=== PATIENT | male | born 1955 | race Caucasian/White ===

== ENCOUNTER 2018-03-30 15:09 | Emergency (ER) | payer OTHER ==
--- OUTSIDE RECORDS SUMMARY | 2018-03-30 15:11 | XMS REPORT | Summary of Care ---
:1955 Author Organization [facility] Outpatient Imaging [place] Address [address], [place] [address]- Encounter HQ Encntr_alias(FIN) [id number] Date(s): 04/02/17 - 04/02/17 [facility] Outpatient Imaging [address], [address] [place] [address]- [phone] Discharge Disposition: Home or Self Care Attending Physician: Anette Ring MD Vital Signs No data available for this section Problem List Condition Effective Dates Status Health Status Informant Hypertension(Confirmed) Resolved Sprain of ligaments of cervical Active spine, initial encounter(Confirmed) Allergies, Adverse Reactions, Alerts Substance Reaction Severity Status NKDA Active Medications No data available for this section Results No data available for this section Immunizations No data available for this section Procedures Procedure Date Related Diagnosis Body Site Appendectomy Knee maneuver Social History Social History Type Response Smoking Status Never smoker; Exposure to Tobacco Smoke None; Cigarette Smoking Last 365 Days No; Reg Smoking Cessation Counseling No Assessment and Plan No data available for this section
--- OUTSIDE RECORDS SUMMARY | 2018-03-30 15:11 | XMS REPORT | Summary of Care ---
:1955 Author Organization [facility] Outpatient Imaging - [place] Address [address] [place], [place] [address]- Encounter HQ Encntr_alias(FIN) [id number] Date(s): 04/15/17 - 04/15/17 [facility] Outpatient [facility] [place] [address] [place] [phone] Discharge Disposition: Home or Self Care Attending [...]
--- OUTSIDE RECORDS SUMMARY | 2018-03-30 15:11 | XMS REPORT | Summary of Care ---
:1955 Author Organization [facility] Address [address] [place] [address]- Encounter HQ Romulo(ARTURO) [id number] Date(s): 12/20/15 - 12/20/15 [facility] [address] [place] [address] Professional Services provided by [facility] [place] [address]- Discharge Diagnosis: Sprain of ligaments of cervical spine, initial encounter Discharge Disposition: Home Attending Physician: Griselda Drummond MD Vital Signs Most recent to oldest [Reference Range]: 1 2 Height 175.26 cm (12/20/15 11:50 AM) Temperature Oral [96.4-99.1 DegF] 100.0 DegF 98.0 DegF *HI* (12/20/15 11:50 AM) (12/20/15 1:49 PM) Blood Pressure [90-140/60-90 mmHg] 146/81 mmHg 153/86 mmHg *HI* *HI* (12/20/15 1:49 PM) (12/20/15 11:50 AM) Respiratory Rate [14-20 BRMIN] 16 BRMIN 16 BRMIN (12/20/15 1:49 PM) (12/20/15 11:50 AM) Peripheral Pulse Rate [60-100 bpm] 64 bpm 60 bpm (12/20/15 1:49 PM) (12/20/15 11:50 AM) Weight 125 kg (12/20/15 11:50 AM) Body Mass Index 40.7 m2 (12/20/15 11:50 AM) Problem List Condition Effective Dates Status Health Status Informant Hypertension(Confirmed) Resolved Sprain of ligaments of cervical Active spine, initial encounter(Confirmed) Allergies, Adverse Reactions, Alerts Substance Reaction Severity Status NKDA Active Medications Flexeril 10 mg oral tablet 10 mg, PO, TID, PRN Muscle Spasm, X 10 day, # 30 tab, 0 Refill(s) Start Date: 12/20/15 Stop Date: 12/30/15 Status: OrderedMotrin 800 mg oral tablet 800 mg=1 tab, PO, Q8H, PRN Pain, Take with food, # 30 tab, 0 Refill(s) Start Date: 12/20/15 Status: Orderedtramadol 100 mg, 2 tab, Route: PO, Drug form: TAB, ONCE, Dosing Weight 125, kg, > 50 kg, Priority: STAT, Start date: 12/20/15 12:22:00, Stop date: 12/20/15 12:22:00 Notes: Not to exceed 400mg/day. (Same As: Ultram) Start Date: 12/20/15 Stop Date: 12/20/15 Status: CompletedTylenol with Codeine #3 oral tablet 1 - 2 tab, PO, Q6H, PRN Pain, X 4 day, # 32 tab, 0 Refill(s) Start Date: 12/20/15 Stop Date: 12/24/15 Status: Ordered Results No data available for this section [...]
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
--- OUTSIDE RECORDS SUMMARY | 2018-03-30 15:11 | XMS REPORT | Summary of Care ---
:1955 Author Organization [facility] Address [address] [place] [address]- Encounter HQ Rudyr_vic(FIN) [id number] Date(s): 03/23/18 - 03/23/18 [facility] [address] [place] [address] [phone] Discharge Disposition: Home or Self Care Attending Physician: Tommie Chung MD Referring Physician: Tommie Chung MD Vital Signs Most recent to oldest [Reference 1 2 3 Range]: Height 175.26 cm (03/23/18 8:03 AM) Blood Pressure [90-140/60-90 mmHg] 159/71 mmHg 157/62 mmHg 157/68 mmHg *HI* *HI* *HI* (03/23/18 4:45 PM) (03/23/18 4:00 PM) (03/23/18 3:00 PM) Respiratory Rate [14-20 BRMIN] 16 BRMIN 20 BRMIN 24 BRMIN (03/23/18 4:45 PM) (03/23/18 4:00 PM) *HI* (03/23/18 3:00 PM) Peripheral Pulse Rate [60-100 bpm] 50 bpm *LOW* (03/23/18 7:35 AM) Weight 128.182 kg (03/23/18 8:03 AM) Body Mass Index 41.73 m2 (03/23/18 8:03 AM) Problem List Condition Effective Dates Status Health Status Informant Diabetes(Confirmed) Resolved High cholesterol(Confirmed) Resolved Hypertension(Confirmed) Resolved Low testosterone(Confirmed) Resolved Sprain of ligaments of cervical Active spine, initial encounter(Confirmed) Allergies, Adverse Reactions, Alerts Substance Reaction Severity Status NKDA Active Medications amLODIPine 10 mg oral tablet 10 mg=1 tab, PO, Daily, # 30 tab, 0 Refill(s) Start Date: 03/22/18 Status: Orderedaspirin 81 mg tablet, enteric coated 81 mg=1 tab, PO, Daily, # 90 tab, 3 Refill(s) Start Date: 03/23/18 Status: Orderedclopidogrel 75 mg oral tablet 75 mg=1 tab, PO, Daily, # 30 tab, 4 Refill(s), Pharmacy: [facility] [email or web address] [facility] # [id number] Start Date: 03/23/18 Stop Date: 08/20/18 Status: OrderedCo Q-10 100 mg oral capsule 100 mg=1 cap, PO, Daily, 0 Refill(s) Start Date: 03/22/18 Status: OrderedCrestor 10 mg oral tablet 10 mg=1 tab, PO, Bedtime, # 30 tab, 0 Refill(s) Start Date: 03/22/18 Status: Ordereddiclofenac sodium 75 mg oral enteric coated, delayed-release tablet 75 mg=1 tab, PO, BID, # 180 tab, 0 Refill(s) Start Date: 03/22/18 Status: OrderedHome Medication See Instructions, Refill(s) 0 Start Date: 03/23/18 Status: OrderedHome Medication See Instructions, Refill(s) 0 Start Date: 03/23/18 Status: OrderedHome Medication See Instructions, Refill(s) 0 Start Date: 03/23/18 Status: Orderedlevothyroxine 75 mcg (0.075 mg) oral tablet 75 microgram=1 tab, PO, Daily, # 30 tab, 0 Refill(s) Start Date: 03/22/18 Status: Orderedlisinopril 40 mg oral tablet 40 mg=1 tab, PO, Daily, # 30 tab, 0 Refill(s) Start Date: 03/22/18 Status: OrderedmetFORMIN 500 mg, PO, QID, 0 Refill(s) Start Date: 03/22/18 Status: Orderedmultivitamin 1 tab, PO, Daily, 0 Refill(s) Start Date: 03/22/18 Status: OrderedNorco 5/325 oral tablet 1 tab, Route: PO, Drug Form: TAB, Dosing Weight 128.182, kg, Q4H, PRN Pain Score 1-3, Start date: 03/23/18 11:04:00 CDT, Duration: 30 day, Stop date: 04/22 11:03:00 CDT Notes: (Same as: [place] 325/5) Do not exceed 4gm/day of acetaminophen. Start Date: 03/23/18 Stop Date: 03/23/18 Status: Discontinuednormal saline 0.9% IV 1,000 mL 1,000 mL, Rate: 100 ml/hr, Infuse over: 10 hr, Route: IV, Dosing Weight 125 kg, Total Volume: 1,000,Start date: 03/23/18 8:03:00 CDT, Duration: 30 day, Stop date: 04/22/18 8:02:00 CDT, 2.5, m2 Start Date: 03/23/18 Stop Date: 03/23/18 Status: DiscontinuedNS 1,000 mL 1,000 mL, Rate: 75 ml/hr, Infuse over: 13.3 hr, Route: IV, Dosing Weight 128.182 kg, Total Volume: 1,000, Start date: 03/23/18 11:04:00 CDT, Duration: 30 day, Stop date: 04/22/18 11:03:00 CDT, 2.53, m2 Start Date: 03/23/18 Stop Date: 03/23/18 Status: Discontinuedomeprazole 20 mg oral delayed release capsule 20 mg=1 cap, PO, Daily, # 30 cap, 0 Refill(s) Start Date: 03/22/18 Stop Date: 03/23/18 Status: DiscontinuedPlavix 75 mg, 1 tab, Route: PO, Drug form: TAB, ONCE, Dosing Weight 128.182, kg, Start date: 03/23/18 17:00:00 CDT, Stop date: 03/23/18 17:00:00 CDT Notes: (Same As: Plavix) Start Date: 03/23/18 Stop Date: 03/23/18 Status: Completed Results No data available for this section Immunizations No data available for this section Procedures Procedure Date Related Diagnosis Body Site Status Appendectomy Completed Knee maneuver Completed Social History Social History Type Response Smoking Status Former smoker; Type: Cigarettes; Previous treatment: None; Ready to change: No; Concerns about tobacco use in household: No; Exposure to Tobacco Smoke None; Cigarette Smoking Last 365 Days No; Reg Smoking Cessation Counseling No entered on: 03/23/18 Assessment and Plan No data available for this section
--- NOTE | 2018-03-30 16:06 | RAD REPORT ---
EXAM DESCRIPTION: Juany Single View03/30/2018 3:56 pm CLINICAL HISTORY: Chest pain COMPARISON: November 2017 FINDINGS: The lungs appear clear of acute infiltrate. The heart is normal size IMPRESSION: No acute abnormalities displayed
[2018-03-30 16:11] LABS: Absolute Lymphocytes (CBC) 1.7 K/uL (0.7-4.9); Absolute Monocytes 0.9 K/uL (0.1-1.3); Absolute Neutrophil 10.6 K/uL (1.8-8.0); Basophils % 0.5 % (0-1.3); Eosinophils % 1.8 % (0-4.4); Lymphocytes % 12.7 % (15.3-44.8); MCH 32.1 pg (27.0-35.0); MCV 93.7 fL (80-100); MPV 9.8 fL (7.6-11.3); Monocytes % 6.7 % (3.3-12.3); Protime INR 0.98; RBC Red Blood Cell Count 4.91 M/uL (4.33-5.43)
[2018-03-30 16:13] LABS: Magnesium 2.1 mg/dL (1.8-2.5)
[2018-03-30 16:19] LABS: CKMB Creatine Kinase MB 2.2 ng/ml (0.3-4.0)
--- NOTE | 2018-03-30 16:51 | EDPHYS ---
Physician Documentation [facility] Name: Jhony Fajardo Age: 62 yrs Sex: Male : 1955 Arrival Date: 03/30/2018 Time: 15:11 Bed 2 Private MD: Dino Blevins V ED Physician Silvano Hameed HPI: 03/30 15:37 This 62 yrs old Male presents to ER via Ambulatory with complaints of Chest rn Tightness, Breathing Difficulty. 15:37 The patient or guardian reports chest pain that is located primarily in the substernal rn area. Onset: last night. The pain does not radiate. Associated signs and symptoms: Pertinent positives: dizziness, shortness of breath, Pertinent negatives: abdominal pain, cough, diaphoresis, headache, lower extremity pain, lower extremity swelling, nausea, near syncope, palpitations, recent travel, syncope, vomiting. Duration: The patient or guardian reports multiple episodes, that are intermittent. Modifying factors: The symptoms are alleviated by nothing. the symptoms are aggravated by nothing. Severity of pain: At its worst the pain was mild in the emergency department the pain has improved. The patient has not experienced similar symptoms in the past. Just had stent placed 1 week ago at [facility], returns with central substernal chest pain, non-radiating, feels "spacey", and lightheaded, assoc with sob last night, currently no sob. . Historical: - Allergies: 15:18 No Known Allergies; aj1 - Home Meds: 15:18 Plavix Oral [Active]; Metformin Oral [Active]; Lisinopril Oral [Active]; Synthroid Oral aj1 [Active]; diclofenac oral oral [Active]; amlodipine oral [Active]; Crestor oral oral [Active]; - PMHx: 15:18 Diabetes - NIDDM; Hypertension; Hypothyroidism; Hyperlipidemia; aj1 - PSHx: 15:18 Appendectomy; Knee surgery; aj1 - Immunization history:: Flu vaccine is up to date. - Social history:: Smoking status: Patient/guardian denies using tobacco. - Ebola Screening: : Patient denies travel to an Ebola-affected area in the 21 days before illness onset. - Family history:: not pertinent. - Hospitalizations: : No recent hospitalization is reported. ROS: 15:37 Constitutional: Negative for fever, chills, and weight loss, Eyes: Negative for injury, rn pain, redness, and discharge, Neck: Negative for injury, pain, and swelling, Cardiovascular: Negative for palpitations, and edema, Respiratory: Negative for shortness of breath, cough, wheezing, and pleuritic chest pain, Abdomen/GI: Negative for abdominal pain, nausea, vomiting, diarrhea, and constipation, Back: Negative for injury and pain, MS/Extremity: Negative for injury and deformity, Skin: Negative for injury, rash, and discoloration, Neuro: Negative for headache, weakness, numbness, tingling, and seizure. Exam: 15:37 Constitutional: This is a well developed, well nourished patient who is awake, alert, rn and in no acute distress. Head/Face: Normocephalic, atraumatic. Eyes: Pupils equal round and reactive to light, extra-ocular motions intact. Lids and lashes normal. Conjunctiva and sclera are non-icteric and not injected. Cornea within normal limits. Periorbital areas with no swelling, redness, or edema. Neck: Trachea midline, no thyromegaly or masses palpated, and no cervical lymphadenopathy. Supple, full range of motion without nuchal rigidity, or vertebral point tenderness. No Meningismus. Cardiovascular: bradycardic, regular, no murmur Respiratory: Lungs have equal breath sounds bilaterally, clear to auscultation and percussion. No rales, rhonchi or wheezes noted. No increased work of breathing, no retractions or nasal flaring. Abdomen/GI: Soft, non-tender, with normal bowel sounds. No distension or tympany. No guarding or rebound. No evidence of tenderness throughout. MS/ Extremity: Pulses equal, no cyanosis. Neurovascular intact. Full, normal range of motion. Equal circumference. Neuro: Awake and alert, GCS 15, oriented to person, place, time, and situation. Cranial nerves II-XII grossly intact. Motor strength 5/5 in all extremities. Sensory grossly intact. Vital Signs: 15:18 BP 139 / 63; Pulse 57; Resp 20; Temp 98.0; Pulse Ox 98% on R/A; Weight 127.01 kg; aj1 Height 5 ft. 9 in. (175.26 cm); Pain 3/10; 16:08 BP 150 / 63; Pulse 59; Resp 15; Pulse Ox 96% on R/A; tw2 17:03 BP 146 / 70; Pulse 62; Resp 18; Pulse Ox 96% on R/A; tw2 17:54 BP 146 / 79; Pulse 65; Resp 18; Pulse Ox 96% on R/A; tw2 15:18 Body Mass Index 41.35 (127.01 kg, 175.26 cm) aj1 MDM: 15:26 Patient medically screened. rn 16:29 ED course: pain free, asymptomatic, normal trop and ecg with pvc, otherwise no rn ischemia.. 16:49 Differential diagnosis: acute myocardial infarction, acute pericarditis, anxiety, rn coronary artery disease chest wall pain, costochondritis, gastroesophageal reflux disease (GERD), pleurisy, pneumothorax. Data reviewed: vital signs, nurses notes, lab test result(s), EKG, radiologic studies, plain films, and as a result, I will admit patient. Counseling: I had a detailed discussion with the patient and/or guardian regarding: the historical points, exam findings, and any diagnostic results supporting the discharge/admit diagnosis, lab results, radiology results, the need to transfer to another facility, Spoke with his overlocker at [facility] in [place], accepts transfer for chest pain observation. . 03/30 15:33 Order name: Basic Metabolic Panel; Complete Time: 16:24 rn 03/30 15:33 Order name: BNP; Complete Time: 16:24 rn 03/30 15:33 Order name: CBC with Diff; Complete Time: 16:24 03/30 15:33 Order name: Ckmb; Complete Time: 16:24 03/30 15:33 Order name: CPK; Complete Time: 16:24 03/30 15:33 Order name: Magnesium; Complete Time: 16:24 03/30 15:33 Order name: PT-INR 03/30 15:33 Order name: Ptt, Activated 03/30 15:33 Order name: Troponin (emerg Dept Use Only); Complete Time: 16:24 rn 03/30 15:33 Order name: XRAY Chest (1 view); Complete Time: 16:12 03/30 15:33 Order name: EKG; Complete Time: 15:33 rn 03/30 15:33 Order name: Cardiac monitoring; Complete Time: 15:55 rn 03/30 15:33 Order name: EKG - Nurse/Tech; Complete Time: 15:55 rn 03/30 15:33 Order name: IV Saline Lock; Complete Time: 15:55 rn 03/30 15:33 Order name: Labs collected and sent; Complete Time: 15:56 rn 03/30 15:33 Order name: O2 Per Protocol; Complete Time: 15:56 rn 03/30 15:33 Order name: O2 Sat Monitoring; Complete Time: 16:23 rn Administered Medications: No medications were administered Disposition: 03/30/18 16:50 Transfer ordered to Other Acute Care Facility. Diagnosis is Chest pain, unspecified. - Reason for transfer: Higher level of care. - Accepting physician is Dr. Chung. - Condition is Stable. - Problem is new. - Symptoms have improved. Signatures: Dispatcher [employer] EDMS Cindy Hernandez, RN RN aj1 Silvano Hameed MD MD rn Wise, Tara, RN RN tw2 Corrections: (The following items were deleted from the chart) 18:10 16:50 03/30/2018 16:50 Transfer ordered to Other Acute Care Facility. Diagnosis is tw2 Chest pain, unspecified. Reason for transfer: Higher level of care. Accepting physician is Dr. Chung. Condition is Stable. Problem is new. Symptoms have improved. rn
--- NOTE | 2018-03-30 16:51 | ER ---
Nurse's Notes [facility] Name: Jhony Fajardo Age: 62 yrs Sex: Male : 1955 Arrival Date: 03/30/2018 Time: 15:11 Bed 2 Private MD: Dino Blevins V Diagnosis: Chest pain, unspecified Presentation: 03/30 15:12 Presenting complaint: Patient states: Substernal chest pain that is described as aj1 pressure, dizziness, and shortness of breath that started last night. Had a cardiac cath done with stent placement on . Transition of care: patient was not received from another setting of care. Onset of symptoms was March 30, 2018 at 01:00. Risk Assessment: Do you want to hurt yourself or someone else? Patient reports no desire to harm self or others. Initial Sepsis Screen: Does the patient meet any 2 criteria? No. Patient's initial sepsis screen is negative. Does the patient have a suspected source of infection? No. Patient's initial sepsis screen is negative. Care prior to arrival: None. 15:12 Method Of Arrival: Ambulatory aj1 15:12 Acuity: DELFINO 2 aj1 Triage Assessment: 15:18 General: Appears in no apparent distress. uncomfortable, Behavior is calm, cooperative, aj1 appropriate for age. Pain: Complains of pain in mid-sternal area Pain does not radiate. Pain currently is 3 out of 10 on a pain scale. Quality of pain is described as heavy, pressure, Pain began 0100 this morning Is intermittent, Alleviated by nothing. Aggravated by nothing. Cardiovascular: Patient's skin is warm and dry. Historical: - Allergies: 15:18 No Known Allergies; aj1 - Home Meds: 15:18 Plavix Oral [Active]; Metformin Oral [Active]; Lisinopril Oral [Active]; Synthroid Oral aj1 [Active]; diclofenac oral oral [Active]; amlodipine oral [Active]; Crestor oral oral [Active]; - PMHx: 15:18 Diabetes - NIDDM; Hypertension; Hypothyroidism; Hyperlipidemia; aj1 - PSHx: 15:18 Appendectomy; Knee surgery; aj1 - Immunization history:: Flu vaccine is up to date. - Social history:: Smoking status: Patient/guardian denies using tobacco. - Ebola Screening: : Patient denies travel to an Ebola-affected area in the 21 days before illness onset. - Family history:: not pertinent. - Hospitalizations: : No recent hospitalization is reported. Screenin:30 Abuse screen: Denies threats or abuse. Nutritional screening: No deficits noted. tw2 Tuberculosis screening: No symptoms or risk factors identified. Fall Risk None identified. Assessment: 15:23 Reassessment: provider Dr. Hameed at bedside at this time. tw2 15:31 General: Appears in no apparent distress. obese, well groomed, Behavior is calm, tw2 cooperative, appropriate for age. Pain: Complains of pain in chest and mid-sternal area. Neuro: Level of Consciousness is awake, alert, obeys commands, Oriented to person, place, time, situation. Cardiovascular: Reports chest pain, shortness of breath, Heart tones S1 S2 Capillary refill < 3 seconds Patient's skin is warm and dry. Respiratory: Airway is patent Respiratory effort is even, unlabored, Respiratory pattern is regular, symmetrical, Breath sounds are clear bilaterally. GI: No signs and/or symptoms were reported involving the gastrointestinal system. Abdomen is round non-distended, Bowel sounds present X 4 quads. : No signs and/or symptoms were reported regarding the genitourinary system. EENT: No signs and/or symptoms were reported regarding the EENT system. Derm: Skin is intact, is healthy with good turgor, Skin is dry, Skin temperature is warm. 16:11 Reassessment: Patient appears in no apparent distress at this time. No changes from tw2 previously documented assessment. Patient and/or family updated on plan of care and expected duration. Pain level reassessed. Patient is alert, oriented x 3, equal unlabored respirations, skin warm/dry/pink. 17:04 Reassessment: Patient appears in no apparent distress at this time. No changes from tw2 previously documented assessment. Patient and/or family updated on plan of care and expected duration. Pain level reassessed. Patient is alert, oriented x 3, equal unlabored respirations, skin warm/dry/pink. Vital Signs: 15:18 BP 139 / 63; Pulse 57; Resp 20; Temp 98.0; Pulse Ox 98% on R/A; Weight 127.01 kg; aj1 Height 5 ft. 9 in. (175.26 cm); Pain 3/10; 16:08 BP 150 / 63; Pulse 59; Resp 15; Pulse Ox 96% on R/A; tw2 17:03 BP 146 / 70; Pulse 62; Resp 18; Pulse Ox 96% on R/A; tw2 17:54 BP 146 / 79; Pulse 65; Resp 18; Pulse Ox 96% on R/A; tw2 15:18 Body Mass Index 41.35 (127.01 kg, 175.26 cm) aj1 ED Course: 15:11 Patient arrived in ED. mr 15:11 Dino Blevins MD is Private Physician. mr 15:15 Triage completed. aj1 15:18 Arm band placed on. aj1 15:25 Erica Costello RN is Primary Nurse. jl7 15:26 Silvano Hameed MD is Attending Physician. rn 15:30 Placed in gown. Bed in low position. Adult w/ patient. school bus monitor on. Pulse ox on. tw2 NIBP on. Pillow given. 15:30 No provider procedures requiring assistance completed. Patient maintains SpO2 tw2 saturation greater than 95% on room air. 15:38 EKG done, by technical support intern. reviewed by Silvano Hameed MD. 3 15:40 Initial lab(s) drawn, by la, sent to lab. Inserted saline lock: 22 gauge in left jp3 forearm, using aseptic technique. Blood collected. 15:49 X-ray completed. Portable x-ray completed in exam room. Patient tolerated procedure bb2 well. 15:49 XRAY Chest (1 view) In Process Unspecified. EDMS 17:55 Patient transferred, IV remains in place. tw2 Administered Medications: No medications were administered Outcome: 16:50 ER care complete, transfer ordered by . rn 17:55 Transferred to [facility], Note: [place] tw2 17:55 Condition: stable 17:55 Instructed on the need for transfer. 18:10 Patient left the ED. tw2 Signatures: Dispatcher [employer] EDMS Cindy Hernandez, RN RN aj1 Sarah Shah mr Silvano Hameed MD MD rn Wise, Tara, RN RN tw2 Erica Costello RN RN jl7 Vira Stoddard bb2 Elizabeth Pereira 3 Willis Bartholomew 3
--- NOTE | 2018-03-31 06:18 | EKG ---
Test Date: 2018-03-30 Test Time: 15:30:34 Workforce Specialist: DEE DEE MEASUREMENT RESULTS: Intervals: Rate: 59 DC: 206 QRSD: 100 QT: 410 QTc: 405 [place]: P: 28 DC: 206 QRS: 6 T: 68 INTERPRETIVE STATEMENTS: Sinus bradycardia with premature atrial complexes with aberrant conduction Otherwise normal ECG Compared to ECG 12/11/2017 12:04:21 Aberrant conduction of supraventricular beat(s) now present Electronically Signed On 03-31-18 06:17:13 CDT by Quincy Shirley
== END 2018-03-30 18:10 ==
LOC: ER 15:09
DX: R07.9 Chest pain, unspecified (principal); E11.9 Type 2 diabetes mellitus without complications; I10 Essential (primary) hypertension; E03.9 Hypothyroidism, unspecified; E78.5 Hyperlipidemia, unspecified
CPT/HCPCS: 36415; 71045; 80048; 82550; 82553; 83735; 83880; 84484; 85025; 85610; 85730; 93005; 99285

== ENCOUNTER 2018-08-20 15:10 | Emergency (ER) | payer OTHER ==
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
[2018-08-20] MEDS ORDERED: CHLORPROMAZINE 25 MG TAB PO ONE ×2 (16:00→18:00)
--- NOTE | 2018-08-20 17:11 | RAD REPORT ---
EXAM DESCRIPTION: RAD - Chest Single View - 08/20/2018 4:09 pm CLINICAL HISTORY: Dyspnea COMPARISON: March 30 TECHNIQUE: AP portable chest image was obtained 1555 hours . FINDINGS: Lungs are clear. Heart and vasculature are normal. No measurable pleural effusion and no p neumothorax. No acute bony abnormality seen. No acute aortic findings suspected. IMPRESSION: No acute cardiopulmonary process. No significant change from comparison.
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
--- NOTE | 2018-08-20 17:22 | EDPHYS ---
Physician Documentation [facility] Name: Jhony Fajardo Age: 62 yrs Sex: Male : 1955 Arrival Date: 08/20/2018 Time: 15:11 Bed 30 Private MD: ED Physician Malick Figueroa HPI: 08/20 15:48 This 62 yrs old Male presents to ER via Wheelchair with complaints of jr8 Shortness Of Breath, hiccups. 15:48 Patient stated that he has had hiccups since his knee surgery last week. Stated that he jr8 was admitted for it and was on Compazine with some relief. Discharged home this past and then started to have them again. Stated that the hiccups come so often that he has shortness of breath from them. Ortho reevaluated his knee and r/o dvt as well . Historical: - Allergies: 15:12 No Known Allergies; la1 - Home Meds: 15:28 amlodipine oral [Active]; Crestor Oral [Active]; diclofenac Oral [Active]; lisinopril mg2 Oral [Active]; Metformin Oral [Active]; Plavix Oral [Active]; Synthroid Oral [Active]; - PMHx: 15:12 Diabetes - NIDDM; Hyperlipidemia; Hypertension; Hypothyroidism; la1 - PSHx: 15:28 total right knee replacement; mg2 - Immunization history:: Adult Immunizations up to date. - Social history:: Smoking status: Patient/guardian denies using tobacco. - Ebola Screening: : No symptoms or risks identified at this time. ROS: 15:48 Eyes: Negative for injury, pain, redness, and discharge, ENT: Negative for injury, jr8 pain, and discharge, Neck: Negative for injury, pain, and swelling, Cardiovascular: Negative for chest pain, palpitations, and edema, Abdomen/GI: Negative for abdominal pain, nausea, vomiting, diarrhea, and constipation, Back: Negative for injury and pain, MS/Extremity: Negative for injury and deformity, Skin: Negative for injury, rash, and discoloration, Neuro: Negative for headache, weakness, numbness, tingling, and seizure. 15:48 Respiratory: Positive for shortness of breath, Negative for cough, dyspnea on exertion, hemoptysis, pleurisy, sputum production, wheezing. Exam: 15:48 Eyes: Pupils equal round and reactive to light, extra-ocular motions intact. Lids and jr8 lashes normal. Conjunctiva and sclera are non-icteric and not injected. Cornea within normal limits. Periorbital areas with no swelling, redness, or edema. ENT: Nares patent. No nasal discharge, no septal abnormalities noted. Tympanic membranes are normal and external auditory canals are clear. Oropharynx with no redness, swelling, or masses, exudates, or evidence of obstruction, uvula midline. Mucous membranes moist. Neck: Trachea midline, no thyromegaly or masses palpated, and no cervical lymphadenopathy. Supple, full range of motion without nuchal rigidity, or vertebral point tenderness. No Meningismus. Cardiovascular: Regular rate and rhythm with a normal S1 and S2. No gallops, murmurs, or rubs. Normal PMI, no JVD. No pulse deficits. Respiratory: Lungs have equal breath sounds bilaterally, clear to auscultation and percussion. No rales, rhonchi or wheezes noted. No increased work of breathing, no retractions or nasal flaring. Abdomen/GI: Soft, non-tender, with normal bowel sounds. No distension or tympany. No guarding or rebound. No evidence of tenderness throughout. Back: No spinal tenderness. No costovertebral tenderness. Full range of motion. Skin: Warm, dry with normal turgor. Normal color with no rashes, no lesions, and no evidence of cellulitis. Neuro: Awake and alert, GCS 15, oriented to person, place, time, and situation. Cranial nerves II-XII grossly intact. Motor strength 5/5 in all extremities. Sensory grossly intact. Cerebellar exam normal. Normal gait. 15:48 Musculoskeletal/extremity: Pulses: noted to be 2+ in the right radial artery, right dorsalis pedis artery, left radial artery and left dorsalis pedis artery, DVT Exam: no pain, no tenderness, negative Homans' sign noted on exam, no appreciated bluish discoloration, no erythema, no increased warmth, Right leg with mild swelling and bruising post surgery noted. Surgical scar covered. Local erythema noted to lateral knee outside of the scar itself with warmth and slightly tender. Vital Signs: 15:12 BP 111 / 49; Pulse 78; Resp 18; Temp 97.2; Pulse Ox 99% on R/A; Weight 127.01 kg; la1 Height 5 ft. 9 in. (175.26 cm); 15:26 BP 119 / 68; Pulse 73; Resp 18; Pulse Ox 98% on R/A; Pain 4/10; mg2 16:28 BP 122 / 58; Pulse 73; Resp 20; Pulse Ox 98% on 3 lpm NC; Pain 2/10; mg2 17:40 BP 118 / 70; Pulse 70; Resp 18; Pulse Ox 98% on R/A; Pain 0/10; mg2 15:12 Body Mass Index 41.35 (127.01 kg, 175.26 cm) la1 MDM: 15:14 Patient medically screened. jr8 17:20 Data reviewed: vital signs, nurses notes, radiologic studies, plain films. Data jr8 interpreted: Pulse oximetry: on room air is 98 %. Interpretation: normal. Counseling: I had a detailed discussion with the patient and/or guardian regarding: the historical points, exam findings, and any diagnostic results supporting the discharge/admit diagnosis, the need for outpatient follow up, a family practitioner, to return to the emergency department if symptoms worsen or persist or if there are any questions or concerns that arise at home. Response to treatment: the patient's symptoms have markedly improved after treatment. 08/20 15:30 Order name: XRAY Chest (1 view); Complete Time: 17:16 jr8 08/20 15:30 Order name: Oxygen; Complete Time: 15:38 jr8 Administered Medications: 15:47 Drug: chlorproMAZINE 50 mg Route: PO; mg2 17:48 Follow up: Response: No adverse reaction; Marked relief of symptoms mg2 17:47 Drug: Bactrim (160 mg-800 mg (DS) 1 tablet Route: PO; mg2 17:48 Follow up: Response: No adverse reaction; Medication administered at discharge. mg2 17:48 Not Given (patient will take at home \T\ midnight. ): chlorproMAZINE 50 mg PO once mg2 Disposition: 18:04 Co-signature as Attending Physician, Malick Figueroa MD I agree with the assessment and kdr plan of care. Disposition: 08/20/18 17:22 Discharged to Home. Impression: Local infection of the skin and subcutaneous tissue, unspecified, Hiccough. - Condition is Stable. - Discharge Instructions: Cellulitis, Adult, Hiccups. - Prescriptions for Chlorpromazine 50 mg Oral Tablet - take 1 tablet by ORAL route every 8 hours for 3 days; 9 tablet. Bactrim DS 800- 160 mg Oral Tablet - take 1 tablet by ORAL route every 12 hours for 10 days; 20 tablet. - Medication Reconciliation Form, Thank You Letter, Antibiotic Education, Prescription Opioid Use form. - Follow up: Private Physician; When: 2 - 3 days; Reason: Recheck today's complaints, Continuance of care, Re-evaluation by your physician. - Problem is new. - Symptoms have improved. Signatures: Dispatcher [employer] EDMS Malick Figueroa MD MD kdr Roszak, Josh, PA PA jr8 Elias Jonas RN RN la1 Levi Knowles RN RN mg2 Corrections: (The following items were deleted from the chart) 17:21 15:48 Musculoskeletal/extremity: Pulses: noted to be 2+ in the right radial artery, jr8 right dorsalis pedis artery, left radial artery and left dorsalis pedis artery, DVT Exam: no pain, no tenderness, negative Homans' sign noted on exam, no appreciated bluish discoloration, no erythema, no increased warmth, Right leg with mild swelling and bruising post surgery noted. Surgical scar covered. No erythema/cellulitis present. jr8 17:50 17:22 08/20/2018 17:22 Discharged to Home. Impression: Local infection of the skin and mg2 subcutaneous tissue, unspecified; Hiccough. Condition is Stable. Forms are Medication Reconciliation Form, Thank You Letter, Antibiotic Education, Prescription Opioid Use. Follow up: Private Physician; When: 2 - 3 days; Reason: Recheck today's complaints, Continuance of care, Re-evaluation by your physician. Problem is new. Symptoms have improved. jr8
[2018-08-20] MEDS ORDERED: SMZ./TMP. 800/160 MG TABLET ONE (17:33)
== END 2018-08-20 17:50 | disposition home or self-care (01) ==
LOC: ER 15:10
DX: L08.9 Local infection of the skin and subcutaneous tissue, unspecified (principal); I10 Essential (primary) hypertension; E11.9 Type 2 diabetes mellitus without complications; E03.9 Hypothyroidism, unspecified; Z79.01 Long term (current) use of anticoagulants
CPT/HCPCS: 71045; 99284

== ENCOUNTER 2018-09-11 11:39 | Observation (INO) | payer OTHER ==
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
[2018-09-11] MEDS ORDERED: ALBUTEROL 2.5 MG/3 ML NEB SOL IH PRN (12:23)
[2018-09-11] MEDS ORDERED: ACETAMINOPHEN 325 MG TABLET PO PRN (13:00)
[2018-09-11] MEDS ORDERED: POLYETHYL GLY 3350 17 GM/DOSE PO PRN (13:00)
[2018-09-11] MEDS ORDERED: ONDANSETRON 4 MG/2 ML VIAL IV PRN (13:00)
[2018-09-11] MEDS ORDERED: ONDANSETRON 4 MG (ODT) TAB PO PRN (13:00)
[2018-09-11] MEDS ORDERED: LOPERAMIDE HCL 2 MG CAPSULE PO PRN (13:00)
[2018-09-11] MEDS ORDERED: DIPHENHYDRAMINE 25 MG TAB/CAP PO PRN (13:00)
[2018-09-11] MEDS ORDERED: NACHLORIDE 0.45% 1,000 ML IV SCH (13:00)
[2018-09-11 13:15] LABS: Absolute Lymphocytes (CBC) 1.5 K/uL (0.7-4.9); Absolute Neutrophil 13.1 K/uL (1.8-8.0); Eosinophils % 0.7 % (0-4.4); Hematocrit 39.8 % (39.6-49.0); Lymphocytes % 9.3 % (15.3-44.8); MCH 32.1 pg (27.0-35.0); MCV 93.3 fL (80-100); MPV 8.8 fL (7.6-11.3); Monocytes % 6.5 % (3.3-12.3); RBC Red Blood Cell Count 4.26 M/uL (4.33-5.43)
[2018-09-11] MEDS: LEVALBUTEROL 1.25 MG/3 ML NEB IH SCH ×2 (13:19→20:01)
[2018-09-11] MEDS: IPRATROPIUM BROM 0.5MG/2.5ML IH SCH ×2 (13:19→20:01)
[2018-09-11 13:26] LABS: Protime INR 1.08
[2018-09-11] MEDS ORDERED: LORazepam 2 MG/ML VIAL IV ONE (13:36)
[2018-09-11 13:58] LABS: Albumin 3.6 g/dL (3.4-5.0); Bilirubin Direct 0.1 mg/dL (0-0.2); Bilirubin Total 0.3 mg/dL (0.2-1.0); Magnesium 2.2 mg/dL (1.8-2.4); Phosphorus 3.1 mg/dL (2.5-4.9); Protein, Total 7.5 g/dL (6.4-8.2); Thyroid Stimulating Hormone 1.6 uIU/mL (0.360-3.740)
[2018-09-11 14:28] LABS: Urine Appearance CLEAR; Urine Bilirubin NEGATIVE (NEG); Urine Blood NEGATIVE (NEG); Urine Color YELLOW; Urine Glucose NEGATIVE (NEG); Urine Protein NEGATIVE (NEG); Urine Specific Gravity 1.015 (1.005-1.030); Urine Urobilinogen 0.2 mg/dL (0.2-1.0)
[2018-09-11 14:30] LABS: Urine Microscopic Reflex NO UMIC
--- NOTE | 2018-09-11 15:03 | RAD REPORT ---
EXAM DESCRIPTION: RAD - Chest Pa And Lat (2 Views) - 09/11/2018 2:46 pm CLINICAL HISTORY: Dyspnea COMPARISON: August 2018 TECHNIQUE: PA and lateral views of the chest were obtained. FINDINGS: The lungs are clear. Heart size is normal and central vasculature is within normal limit s. No pleural effusion or pneumothorax seen. No acute bony finding noted. No aortic abnormality. IMPRESSION: No acute cardiopulmonary process. No significant change from comparison.
--- NOTE | 2018-09-11 16:00 | RAD REPORT ---
EXAM DESCRIPTION: MRI - Brain Wo Cont - 09/11/2018 2:34 pm CLINICAL HISTORY: Transient alteration of awareness COMPARISON: None. TECHNIQUE: Sagittal T1-weighted images were obtained along with axial PD, heavily T2-weighted and T2 -FLAIR images. Axial DWI and ADC mapping sequences were also obtained along with coronal heavily T2-w eighted images. FINDINGS: No intracranial hemorrhage, mass or acute infarction. There is no edema or shift of midlin e structures. No extra-axial fluid collections. [place]-matter/white matter junction is preserved. Signa l voids are seen as a normal finding in the major intracranial vessels. No measurable atrophy or risk compliance analyst rafael ischemic change. Globes and orbital contents are unremarkable. No sella or supra sella abnormality. Mastoid air cells and paranasal sinuses are clear. IMPRESSION: Negative noncontrast MRI of the brain for acute or significant finding.
--- NOTE | 2018-09-11 16:03 | ECHO ---
HEIGHT: 5 ft 9 in WEIGHT: 267 lb 0 oz DATE OF STUDY: 09/11/[address]: Dino Blevins MD 2-DIMENSIONAL: YES M.MODE: YES DOPPLER: YES COLOR FLOW: YES TDS: NO PORTABLE: NO DEFINITY: NO BUBBLE STUDY: NO DIAGNOSIS: DYSPNEA CARDIAC HISTORY: CATHERIZATION: YES SURGERY: NO PROSTHETIC VALVE: NO PACEMAKER: NO MEASUREMENTS (cm) DIASTOLIC (NORMALS) SYSTOLIC (NORMALS) IVSd 1.2 (0.6-1.2) LA Diam 4.4 (1.9-4.0) LVEF 79% LVIDd 5.5 (3.5-5.7) LVIDs 2.9 (2.0-3.5) %FS 48% LVPWd 1.3 (0.6-1.2) Ao Diam 2.7 (2.0-3.7) 2 DIMENSIONAL ASSESSMENT: RIGHT ATRIUM: NORMAL LEFT ATRIUM: DILATED RIGHT VENTRICLE: NORMAL LEFT VENTRICLE: NORMAL TRICUSPID VALVE: NORMAL MITRAL VALVE: NORMAL PULMONIC VALVE: NORMAL AORTIC VALVE: NORMAL PERICARDIAL EFFUSION: NONE AORTIC ROOT: NORMAL LEFT VENTRICULAR WALL MOTION: NORMAL. DOPPLER/COLOR FLOW: MILD TRICUSPID REGURGITATION. NORMAL RIGHT VENTRICULAR SYSTOLIC PRESSURE. COMMENTS: NORMAL LEFT VENTRICULAR EJECTION FRACTION. DJILATED LEFT ATRIUM. MILD TRICUSPID REGURGITATION. TECHNOLOGIST: MELI MACIAS
[2018-09-11] MEDS: CODEINE 30MG/APAP 300MG TAB PO PRN (18:51)
--- NOTE | 2018-09-11 19:17 | EKG ---
Test Date: 2018-09-11 Test Time: 13:27:46 Interactive Media Project Manager: DEE DEE MEASUREMENT RESULTS: Intervals: Rate: 65 PA: 200 QRSD: 104 QT: 378 QTc: [address] [place]: P: 48 PA: 200 QRS: 26 T: 56 INTERPRETIVE STATEMENTS: Sinus rhythm with premature atrial complexes with aberrant conduction Otherwise normal ECG Compared to ECG 03/30/2018 15:30:34 Sinus bradycardia no longer present Electronically Signed On 09-11-18 19:17:25 PET CARE ASSOCIATE by Quincy Shirley
[2018-09-11] MEDS ORDERED: ROSUVASTATIN 10 MG TAB PO SCH (21:00)
[2018-09-12] MEDS: CODEINE 30MG/APAP 300MG TAB PO PRN (00:27)
[2018-09-12] MEDS: IPRATROPIUM BROM 0.5MG/2.5ML IH SCH ×3 (02:00→13:34)
[2018-09-12] MEDS: LEVALBUTEROL 1.25 MG/3 ML NEB IH SCH ×3 (02:00→13:34)
[2018-09-12 04:17] LABS: Absolute Lymphocytes (CBC) 1.6 K/uL (0.7-4.9); Absolute Neutrophil 9.4 K/uL (1.8-8.0); Basophils % 0.7 % (0-1.3); Eosinophils % 2.4 % (0-4.4); Hematocrit 37.1 % (39.6-49.0); Lymphocytes % 12.9 % (15.3-44.8); MCH 31.9 pg (27.0-35.0); MCV 93.3 fL (80-100); Monocytes % 8.1 % (3.3-12.3); RBC Red Blood Cell Count 3.97 M/uL (4.33-5.43)
[2018-09-12] MEDS ORDERED: LEVOTHYROXINE SOD 0.075 MG TAB PO SCH (06:00)
[2018-09-12] MEDS ORDERED: PANTOPRAZOLE 40MG TABLET PO SCH (06:30)
[2018-09-12] MEDS ORDERED: INFLUENZA VACCINE (for 3y+) 0.5 ML DOSE IMVAC ONE (08:00)
[2018-09-12] MEDS ORDERED: SODIUM CHLORIDE 0.9% 10ML INJ IV ONE (08:00)
[2018-09-12] MEDS ORDERED: COSYNTROPIN 0.25 MG VIAL IV ONE (08:00)
[2018-09-12] MEDS ORDERED: LISINOPRIL 20 MG TAB PO SCH (09:00)
[2018-09-12] MEDS ORDERED: HOME MED 1 EA UNK (Omeprazole [Omeprazole] 20 MG) PO SCH (09:00)
[2018-09-12] MEDS ORDERED: ASPIRIN 81 MG CHEWABLE TABLET PO SCH (09:00)
[2018-09-12] MEDS ORDERED: ENOXAPARIN 40 MG/0.4 ML SQ SCH (09:00)
[2018-09-12] MEDS ORDERED: MULTIVITAMIN TAB PO SCH (09:00)
[2018-09-12] MEDS ORDERED: DULOXETINE 20 MG CAP PO SCH (09:00)
[2018-09-12] MEDS ORDERED: TAMSULOSIN 0.4 MG SR CAP PO SCH (17:30)
--- NOTE | 2018-09-12 21:01 | P.DS ---
Admission Date: 09/11/18 Discharge Date: 09/12/18 Disposition: ROUTINE DISCHARGE Hospital Course: SHAZIA HAS HAD ALTERED MENTAL STATUS PER AFTER ANESTHESIA FOR KNEE SURGERY. PER HER HE HAD DIFFICULT TIME WAKING UP AFTER ANESTHESIA. HE HAS SEVERE SLEEP APNEA. THEY WERE ALSO CONCERNED ABOUT HIGH WBC BUT WITH HYDRATION THE WBC HAS COME DOWN TO 12K. I SEE NO SIGNS OF INFECTION. HIS MRI BRAIN IS NEGATIVE. HE HAS FELT BETTER. I STARTED HIM ON CYMBALTA. I WILL FU IN A WEEK. IF HE IS NOT BETTER MENTALLY HE WILL SEE NEUROLGOIST. I SUSPECT HIS MEMORY AND MILD WBC ELEVATION SHOULD GET BETTER WITH TIME. Vital Signs/Physical Exam: Temp Pulse Resp BP Pulse Ox 97.5 F 53 18 122/60 98 09/12/18 08:00 09/12/18 08:00 09/12/18 08:00 09/12/18 08:00 09/12/18 08:00 Laboratory Data at Discharge: WBC 12.4 K/uL (4.3-10.9) H D 09/12/18 03:49 Hgb 12.7 g/dL (13.6-17.9) L 09/12/18 03:49 Hct 37.1 % (39.6-49.0) L 09/12/18 03:49 Plt Count 265 K/uL (152-406) 09/12/18 03:49 PT 12.8 SECONDS (9.5-12.5) H 09/11/18 12:58 INR 1.08 09/11/18 12:58 APTT 32.6 SECONDS (24.3-36.9) 09/11/18 12:58 Sodium 139 mmol/L (136-145) 09/12/18 03:49 Potassium 4.0 mmol/L (3.5-5.1) 09/12/18 03:49 BUN 18 mg/dL (7-18) 09/12/18 03:49 Creatinine 1.40 mg/dL (0.55-1.3) H 09/12/18 03:49 Glucose 132 mg/dL (74-106) H 09/12/18 03:49 Phosphorus 3.1 mg/dL (2.5-4.9) 09/11/18 12:58 Magnesium 2.0 mg/dL (1.8-2.4) 09/12/18 03:49 Total Bilirubin 0.3 mg/dL (0.2-1.0) 09/11/18 12:58 AST 10 U/L (15-37) L 09/11/18 12:58 ALT 21 U/L (12-78) 09/11/18 12:58 Alkaline Phosphatase 110 U/L (45-117) 09/11/18 12:58 Home Medications: Amlodipine [Norvasc*] 1 tab PO DAILY 12/10/16 Lisinopril 40 mg PO DAILY 12/10/16 Rosuvastatin Calcium [Crestor] 1 tab PO BEDTIME 12/10/16 Aspirin Chewable [Aspirin Chewable*] 81 mg PO DAILY 09/11/18 Cholecalciferol (Vitamin D3) [Vitamin D3] 25 mcg PO DAILY 09/11/18 Clopidogrel Bisulfate [Plavix*] 75 mg PO M,W,F 09/11/18 Codeine/APAP [Tylenol #3*] 1 tab PO Q6H PRN 09/11/18 Folic Acid/Multivit-Min/Lutein [Multi-Vitamin Gummies] 1 tab PO DAILY 09/11/18 Krill/[place]-3/Dha/Epa/Lipids [Krill Oil 300 mg Softgel] 1 tab PO DAILY 09/11/18 Lactobacillus Combo No.13 [Probiotic Pearls Complete] 1 each PO DAILY 09/11/18 Levothyroxine [Synthroid*] 1 tab PO [id number] 09/11/18 Omeprazole 20 mg PO DAILY 09/11/18 Tamsulosin HCl 0.4 mg PO DAILY AFTER SUPPER 09/11/18 Triamterene/Hydrochlorothiazid [Triamterene-Hctz 37.5-25 mg Cp] 1 each PO DAILY AT SUPPER 09/11/18 Turmeric/Turmeric Root Extract [Turmeric 500 mg Capsule] 2 each PO DAILY Ubidecarenone/Vit E Acetate [Co Q-10 100 mg Softgel] 100 mg PO DAILY 09/11/18 Followup: Giorgio Dunbar MD [ASSOCIATE-ACTIVE - CAN ADMIT] - Dino Blevins MD [Primary Care Provider] - 1 Week (Call to schedule an appointment)
--- NOTE | 2018-09-12 23:19 | CON ---
Reason For Consultation: Consultation called because of intermittent altered mental status. History Of Present Illness: Mr. Fajardo is a 62-year-old patient with [id number] diabetes mellitus, hyper lipidemia, hypertension, and hypothyroidism, who recently had right knee replacement surgery last month and since that time has had a postop period including repeated hiccups which have improved and episodes of sudden onset disorientation, unable to get his thoughts together, cannot res pond, may appear to stare off briefly. These episodes seem somewhat stereotyped and had been observe d by his . He came into [facility] for an evaluation on the 11 of September and he was evaluated in the emergency room. His brain MRI was negative for any acute ischemic or hemorrhagic c hange. No significant atrophy or small-vessel disease was identified. His echocardiogram showed an ejection fraction of normal range without any abnormalities. Electrocardiogram was unremarkable. Ej ection fraction was actually 79%. He has a mild dilatation of the left atrium and mild tricuspid reg urgitation. His electrocardiogram showed sinus rhythm with premature atrial complexes and average co nduction, was otherwise normal. His chest x-ray showed no acute cardiopulmonary processes and his ite blood cell count is slightly elevated at 15.9 with neutrophils 82.5 on yesterday and today down t o 12.4 with neutrophils to 75.9. Otherwise, coagulation panel was normal. Chemistries did show some dehydration with creatinine increased to 1.6; after hydration, it is 1.4. His liver function study is unremarkable. Urinalysis negative. Since his admission, the patient and his denied any acti ve events, any fears of returning back to baseline functioning at this time. He has not taken any an tiepileptic medications or other medications for his events. He denies any significant risk factors for seizures, such as head trauma with loss of consciousness, stroke, transient ischemic attack, family history of seizures, and no recent use of alcohol, no IV dr ugs, illegal drugs as well. Past Medical History: As indicated above. Allergies: NO KNOWN DRUG ALLERGIES. Medications At Home: amlodipine, Crestor, diclofenac, lisinopril, metformin, Plavix, and Synthroid. Surgical History: Right knee replacement. Review of Systems: Other than indicated above, no recent psychiatric complaints, no gastrointestinal or genitourinary is sues, no focal deficits, and no respiratory issues. Physical Examination: Vital Signs: Blood pressure 120/60, pulse 53, respiratory rate 16, temperature 97.5, oxygen saturati on 98% on room air. Weight 267 pounds, height 5 feet and 9 inches, and BMI 39.5. General: Mr. Fajardo is sitting in a chair beside his bed. He is in no acute distress. HEENT: He is normocephalic, atraumatic. His sclerae are anicteric. Oropharynx is moist and pink. Neck: Supple. Chest: Clear. Heart: Regular. Extremities: Show no edema, cyanosis, or clubbing. Neurological: He is alert and oriented to situation, place, and person, follows all commands appropr iately. Cranial nerves 2 through 12 show no focal deficits. Motor examination, he has 5/5 strength proximally and distally in the upper and lower extremities with normal bulk and tone. Sensory exam, mild stocking-glove loss to light touch and temperature in the legs and arms. Reflexes 1+ and symmet emelia in the upper and lower extremities. Coordination is intact in the upper and lower extremities. Gait is normal with normal stance, right arm swing. Assessment: Mr. Fajardo is a 62-year-old patient with uncharacterized episodes of confusion without s yncope. He does not have significant small-vessel ischemic disease in the brain on MRI. He does hav e a slightly elevated white count and had a recent right knee replacement surgery. Plan: 1.The patient should have an ambulatory EEG monitoring study for event characterization. 2.The patient was told along with his to maintain an event diary. 3.Continue all comorbid condition medications as indicated. 4.He should continue with aspirin 81 mg and Plavix 75 mg daily for stroke risk reduction. 5.Continue with high-dose statin for dyslipidemia. 6.Continue with aggressive management of diabetes and hypertension. 7.The patient was told the importance of maintaining healthy diet and hydration and exercise as stro kes and heart attack risk factor reduction. 8.He will follow up in Dr. Dunbar's clinic within a month of discharge. LEILANI Voice ID: [id number] Report ID: [id number]
[2018-09-13] MEDS ORDERED: CLOPIDOGREL 75 MG TABLET PO SCH (17:00)
== END 2018-09-12 14:19 | disposition home or self-care (01) ==
LOC: 4TH 11:54
PROVIDERS: ADMIT Internal Medicine; ATTEND Internal Medicine
DX: R41.82 Altered mental status, unspecified (principal); E11.9 Type 2 diabetes mellitus without complications; E78.5 Hyperlipidemia, unspecified; I10 Essential (primary) hypertension; E03.9 Hypothyroidism, unspecified; G47.30 Sleep apnea, unspecified; Z96.651 Presence of right artificial knee joint; Z23 Encounter for immunization
CPT/HCPCS: 36415; 70551; 71046; 80048; 80076; 81003; 82024; 82306; 82533; 82607; 83735; 84100; 84443; 85025; 85610; 85730; 87040; 87086; 87088; 93005; 93306; 94640; G0008; G0378; J0834; Q2035

== ENCOUNTER → 2023-11-11 | Emergency (ER) | payer OTHER ==
[~2023-11-11] MED LIST: AMOX/K CLAV 875 MG TAB ONE; HYDROCODONE/APAP 10/325 TAB ONE; OXYMETAZOLINE HCL 0.05% 15ML NAS ONE; SILVER NITRATE 1 APPL TOP ONE; TRANEXAMIC ACID 1,000 MG/10 ML VIAL IV ONE; cloNIDine HCL 0.1 MG TAB ONE
[2023-11-11 21:10] LABS: Absolute Lymphocytes (CBC) 2.3 K/uL (0.7-4.9); Hematocrit 45.3 % (39.6-49.0); Lymphocytes % 18.2 % (15.3-44.8); MCV 95.6 fL (80-100); MPV 8.7 fL (7.6-11.3); Platelets 240 thou/uL (152-406); RBC Red Blood Cell Count 4.74 M/uL (4.33-5.43)
[2023-11-11 21:25] LABS: Protime INR 0.99
--- NOTE | 2023-11-11 22:11 | ER ---
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 rv tried to put pressure for 10-15 minutes, but it will just start to bleed again. Coronavirus screen: At this time, the client does not indicate any symptoms associated with coronavirus-19. Ebola Screen: No symptoms or risks identified at this time. Initial Sepsis Screen: Does the patient meet any 2 criteria? No. Patient's initial sepsis screen is negative. Does the patient have a suspected source of infection? No. Patient's initial sepsis screen is negative. Risk Assessment: Do you want to hurt yourself or someone else? Patient reports no desire to harm self or others. Onset of symptoms was November 11, 2023. 20:05 Method Of Arrival: Ambulatory rv 20:05 Acuity: DELFINO 4 rv Triage Assessment: 20:07 General: Appears in no apparent distress. Behavior is calm, cooperative. Pain: Denies rv pain. Neuro: Level of Consciousness is awake, alert, obeys commands, Oriented to person, place, time, situation. Cardiovascular: Capillary refill < 3 seconds Patient's skin is warm and dry. Respiratory: Airway is patent Respiratory effort is even, unlabored. GI: No signs and/or symptoms were reported involving the gastrointestinal system. : No signs and/or symptoms were reported regarding the genitourinary system. Derm: Skin is intact. Historical: - Allergies: 20:07 No Known Allergies; rv - PMHx: 20:07 Diabetes - NIDDM; Hyperlipidemia; Hypertension; Hypothyroidism; rv - PSHx: 20:07 knee replacement, right (Hypothyroidism); cataract sx (Hypothyroidism); cardiac stent rv (Hypothyroidism); - Immunization history:: Adult Immunizations up to date. - Social history:: Smoking status: Patient reports the use of cigarette tobacco products, denies chronic smoking, but will smoke occasionally. Screenin:09 [facility] ED Fall Risk Assessment (Adult) History of falling in the last 3 months, rv including since admission No falls in past 3 months (0 pts) Score/Fall Risk Level 0 - 2 = Low Risk Oriented to surroundings, Maintained a safe environment, Educated pt \T\ family on fall prevention, incl call for assistance when getting out of bed, Assessed \T\ reinforced patient's understanding of fall precautions. Abuse screen: Denies threats or abuse. Denies injuries from another. Nutritional screening: No deficits noted. Tuberculosis screening: No symptoms or risk factors identified. Assessment: 21:15 Reassessment: No changes from previously documented assessment. Patient is alert, la4 oriented x 3, equal unlabored respirations, skin warm/dry/pink. DC to home accompanied by neighbor Patient states feeling better. Patient states symptoms have improved. Neuro: No deficits noted. Acosta Agitation-Sedation Scale (RASS): 0 - Alert and Calm Level of Consciousness is awake, alert, obeys commands, Oriented to person, place, time, situation. 21:15 Cardiovascular: No deficits noted. Heart tones S1 S2 Capillary refill < 3 seconds is la4 brisk fingers Patient's skin is warm and dry. Pulses are all present. Rhythm is sinus rhythm. Respiratory: No deficits noted. Airway is patent Respiratory effort is even, unlabored, Respiratory pattern is regular, symmetrical. EENT: Nares with bleeding noted on left. Vital Signs: 20:05 BP 175 / 82; Pulse 64; Resp 16; Temp 98.2; Pulse Ox 97% ; Weight 114.31 kg; Height 5 rv ft. 9 in. ; Pain 0/10; 21:15 BP 159 / 71; Pulse 60; Resp 18; Pulse Ox 98% on R/A; la4 22:23 BP 173 / 82; Pulse 58; Resp 20; Pulse Ox 98% ; Pain 0/10; la4 22:26 BP 173 / 82; Pulse 58; Resp 20; Pulse Ox 98% on R/A; la4 20:05 Body Mass Index 37.21 (114.31 kg, 175.26 cm) rv 20:05 Pain Scale: Adult rv 22:23 Pain Scale: Adult la4 Sydni Coma Score: 22:26 Eye Response: spontaneous(4). Motor Response: obeys commands(6). Verbal Response: la4 oriented(5). Total: 15. ED Course: 20:01 Patient arrived in ED. ag3 20:05 Enoch Cabral PA is PHCP. cp 20:05 Edu Guzman MD is Attending Physician. cp 20:07 Triage completed. rv 20:07 Arm band placed on right wrist. rv 20:09 Patient has correct armband on for positive identification. rv 20:13 Attending Physician role handed off by Edu Guzman MD sander 20:13 Enoch Laureano MD is Attending Physician. sander 20:28 Silvano Du RN is Primary Nurse. la4 22:09 Mirna Lainez MD is Referral Physician. cp 22:26 Provided Education on: Plan of care, discharge instructions on not blowing his nose and la4 to leave rhino-rocket in place until seen by ENT on Tuesday. Client placed on continuous cardiac and pulse oximetry monitoring. NIBP monitoring applied. 22:26 No provider procedures requiring assistance completed. IV discontinued, intact, la4 bleeding controlled, No redness/swelling at site. Pressure dressing applied. Administered Medications: 21:01 Drug: tranexamic acid 1 application Topical once {Note: BILATERAL NARES.} Route: la4 Topical; Site: face; 21:02 Drug: Oxymetazoline Intranasal Drops (0.05 %) 1 sprays Intranasal once Route: la4 Intranasal; Site: both nares; 21:03 Not Given (Physician Discretion): lorazepam1 mg PO once cp 21:09 Drug: HYDROcodone-acetaminophen PO 10 mg-325 mg 1 tabs PO once Route: PO; la4 21:41 Drug: Silver Nitrate Applicators Topical 1 application Topical once {Note: LEFT NARE.} la4 Route: Topical; Site: affected area; 21:58 Drug: Amoxicillin-Clavulanate PO 875 mg PO once Route: PO; jb4 22:10 Drug: cloNIDine PO 0.2 mg PO once Route: PO; la4 22:23 Follow up: BP 173 / 82; Pulse 58 bpm; Resp 20 bpm; Pulse Ox 98% ; Pain 0/10 Adult; la4 Response: No adverse reaction; No change in condition; DC to home Medication: 20:09 VIS not applicable for this client. rv Intake: Outcome: 22:10 Discharge ordered by . cp 22:26 Discharged to home with friend, laAbad 22:26 Condition: improved 22:26 Discharge instructions given to patient, friend, Instructed on discharge instructions, follow up and referral plans. medication usage, rhino-rocket and need for follow up Demonstrated understanding of instructions, follow-up care, rhino rocket Prescriptions given X 1, 22:29 Patient left the ED. [email or web address] Signatures: Enoch Laureano MD MD cha Page, Corey, PA PA cp Bryson, James RN RN jb4 Jamir Montano RN RN Alannah Shen3 Silvano Du RN RN la4
--- NOTE | 2023-11-11 22:11 | EDPHYS ---
Physician Documentation [facility] Name: Jhony Fajardo Age: 68 yrs Sex: Male : 1955 Arrival Date: 11/11/2023 Time: 19:57 Bed 7 Private MD: ED Physician Enoch Laureano HPI: 11/11 20:30 This 68 yrs old Male presents to ER via Ambulatory with complaints of Nose Bleed. cp 20:30 The patient presents with a nose bleed, that is intermittent with clots. Onset: The cp symptoms/episode began/occurred 1 hour(s) ago. Associated signs and symptoms: Loss of consciousness: the patient experienced no loss of consciousness, Pertinent negatives: chest pain, cough, fever, lightheadedness, shortness of breath. Severity of symptoms: in the emergency department the symptoms have improved mildly. Historical: - Allergies: 20:07 No Known Allergies; rv - PMHx: 20:07 Diabetes - NIDDM; Hyperlipidemia; Hypertension; Hypothyroidism; rv - PSHx: 20:07 knee replacement, right (Hypothyroidism); cataract sx (Hypothyroidism); cardiac stent rv (Hypothyroidism); - Immunization history:: Adult Immunizations up to date. - Social history:: Smoking status: Patient reports the use of cigarette tobacco products, denies chronic smoking, but will smoke occasionally. ROS: 20:35 ENT: Positive for nose bleed, cp 20:35 Constitutional: Negative for body aches, chills, fever, poor PO intake, cp 20:35 Cardiovascular: Negative for chest pain, palpitations, 20:35 Respiratory: Negative for cough, shortness of breath, wheezing, cp 20:35 Abdomen/GI: Negative for abdominal pain, vomiting, diarrhea, constipation, 20:35 Neuro: Negative for altered mental status, dizziness, headache, syncope, near syncope, weakness, 20:35 All other systems are negative, Exam: 20:40 Constitutional: The patient appears in no acute distress, alert, awake, cp non-diaphoretic, non-toxic, well developed, well nourished, obese, 20:40 Head/Face: Normocephalic, atraumatic. cp 20:40 Eyes: Periorbital structures: appear normal, Conjunctiva: normal, no exudate, no injection, Sclera: no appreciated abnormality, Lids and lashes: appear normal, bilaterally, 20:40 ENT: External ear(s): are unremarkable, Nose: External nose: no obvious acute abnormality, bleeding, is seen from the left nare, and is moderate, no septal hematoma is appreciated, Mouth: Lips: moist, Oral mucosa: pink and intact, moist, Posterior pharynx: Airway: no evidence of obstruction, patent, swelling, is not appreciated, mild bloody drainage, 20:40 Neck: ROM/movement: is normal, is supple, without pain, no range of motions limitations, 20:40 Chest/axilla: Inspection: normal, 20:40 Cardiovascular: Rate: normal, Rhythm: regular, 20:40 Respiratory: the patient does not display signs of respiratory distress, Respirations: normal, no use of accessory muscles, no retractions, labored breathing, is not present, Breath sounds: are clear throughout, no decreased breath sounds, no stridor, no wheezing, 20:40 Neuro: Orientation: to person, place \T\ time. Mentation: is normal, Motor: moves all fours, strength is normal, Vital Signs: 20:05 BP 175 / 82; Pulse 64; Resp 16; Temp 98.2; Pulse Ox 97% ; Weight 114.31 kg; Height 5 rv ft. 9 in. ; Pain 0/10; 21:15 BP 159 / 71; Pulse 60; Resp 18; Pulse Ox 98% on R/A; la4 22:23 BP 173 / 82; Pulse 58; Resp 20; Pulse Ox 98% ; Pain 0/10; la4 22:26 BP 173 / 82; Pulse 58; Resp 20; Pulse Ox 98% on R/A; la4 20:05 Body Mass Index 37.21 (114.31 kg, 175.26 cm) rv 20:05 Pain Scale: Adult rv 22:23 Pain Scale: Adult la4 Sydni Coma Score: 22:26 Eye Response: spontaneous(4). Motor Response: obeys commands(6). Verbal Response: la4 oriented(5). Total: 15. Procedures: 22:00 Epistaxis treatment: A moderate amount of bleeding noted from left nare. Treated using cp rhino rocket, Bleeding stopped. MDM: 20:13 Patient medically screened. cp 22:10 Data reviewed: vital signs, nurses notes. cp 22:10 Differential diagnosis: foreign body - resolved, foreign body - unresolved, trauma, cp sinusitis. I considered the following discharge prescriptions or medication management in the emergency department Medications were administered in the Emergency Department. See MAR. Counseling: I had a detailed discussion with the patient and/or guardian regarding the historical points, exam findings, and any diagnostic results supporting the discharge/admit diagnosis, the need for outpatient follow up, an ENT specialist, to return to the emergency department if symptoms worsen or persist or if there are any questions or concerns that arise at home. Response to treatment: the patient's symptoms have resolved after treatment, nasal bleeding stopped, and as a result, I will discharge patient. 11/11 20: Order name: CBC with Diff; Complete Time: 21:51 cp 11/11 21:51 Interpretation: Normal except: WBC 12.80. cp 11/11 20: Order name: BMP; Complete Time: 21:51 cp 11/11 20: Order name: PT-INR; Complete Time: 21:51 cp 11/11 20: Order name: Ptt, Activated; Complete Time: 21:51 cp 11/11 20: Order name: IV; Complete Time: 21:02 cp Administered Medications: 21:01 Drug: tranexamic acid 1 application Topical once {Note: BILATERAL NARES.} Route: la4 Topical; Site: face; 21:02 Drug: Oxymetazoline Intranasal Drops (0.05 %) 1 sprays Intranasal once Route: la4 Intranasal; Site: both nares; 21:03 Not Given (Physician Discretion): lorazepam1 mg PO once cp 21:09 Drug: HYDROcodone-acetaminophen PO 10 mg-325 mg 1 tabs PO once Route: PO; la4 21:41 Drug: Silver Nitrate Applicators Topical 1 application Topical once {Note: LEFT NARE.} la4 Route: Topical; Site: affected area; 21:58 Drug: Amoxicillin-Clavulanate PO 875 mg PO once Route: PO; jb4 22:10 Drug: cloNIDine PO 0.2 mg PO once Route: PO; la4 22:23 Follow up: BP 173 / 82; Pulse 58 bpm; Resp 20 bpm; Pulse Ox 98% ; Pain 0/10 Adult; la4 Response: No adverse reaction; No change in condition; DC to home Disposition Summary: 11/11/23 22:10 Discharge Ordered Notes: Location: Home cp Problem: new cp Symptoms: are resolved cp Condition: Stable cp Diagnosis - Epistaxis cp Followup: cp - With: Mirna Lainez MD - When: 2 - 3 days - Reason: Recheck today's complaints Discharge Instructions: - Discharge Summary Sheet cp - Nosebleed, Adult cp Forms: - Medication Reconciliation Form cp - Thank You Letter cp - Antibiotic Education cp - Prescription Opioid Use cp - Patient Portal Instructions cp - Leadership Thank You Letter cp Prescriptions: - Augmentin 875-125 mg Oral Tablet - take 1 tablet ORAL route every 12 hours for 10 days; 20 tablet; Refills: 0, cp Product Selection Permitted Signatures: Dispatcher [employer] EDMS Enoch Cabral PA PA cp Bryson, James RN RN jb4 Jamir Montano RN RN Silvano Cee RN RN la4
[2023-11-12 01:15] VITALS: BP 173/82; TEMP 98.2; O2SAT 98
== END ==
LOC: ER 19:57
PROC: 2Y41X5Z Packing of Nasal Region using Packing Material (ICD-10-PCS; principal; 2023-11-11)
DX: R04.0 Epistaxis (principal); I10 Essential (primary) hypertension; F17.210 Nicotine dependence, cigarettes, uncomplicated; Z95.818 Presence of other cardiac implants and grafts
CPT/HCPCS: 36415; 80048; 85025; 85610; 85730

== ENCOUNTER 2024-10-20 10:19 | Inpatient (IN) | payer OTHER ==
[2024-10-20] MEDS ORDERED: NA CHLORIDE 0.9% 1,000 ML ONE (11:07)
[2024-10-20] MEDS ORDERED: ONDANSETRON 4 MG/2 ML VIAL ONE (11:07)
[2024-10-20 11:24] LABS: Absolute Basophils 0.1 K/uL (0-0.5); Absolute Eosinophils 0.3 K/uL (0-0.5); Absolute Lymphocytes (CBC) 1.9 K/uL (0.7-4.9); Absolute Monocytes 0.4 K/uL (0.1-1.3); Absolute Neutrophil 6.2 K/uL (1.8-8.0); Basophils % 0.6 % (0-1.3); Eosinophils % 3.5 % (0-4.4); Hematocrit 46.7 % (39.6-49.0); Lymphocytes % 21.2 % (15.3-44.8); MCH 33.5 pg (27.0-35.0); MCHC 34.3 g/dL (32.0-36.0); MCV 97.6 fL (80-100); MPV 8.7 fL (7.6-11.3); Monocytes % 4.2 % (3.3-12.3); Neutrophils % 70.5 % (41.7-73.7); Platelets 259 thou/uL (152-406); RBC Red Blood Cell Count 4.78 M/uL (4.33-5.43); Red Cell Distribution Width 12.9 % (12.1-15.2)
[2024-10-20 11:34] LABS: Anion Gap 14.8 mEq/L (5.0-15.0); Potassium 3.8 mEq/L (3.5-5.1)
[2024-10-20 11:39] LABS: Troponin High Sensitivity 87.2 pg/mL (<58.9)
[2024-10-20] MEDS ORDERED: ASPIRIN 81 MG CHEWABLE TABLET ONE (11:39)
--- NOTE | 2024-10-20 12:36 | EDPHYS ---
Physician Documentation [facility] Name: Jhony Fajardo Age: 69 yrs Sex: Male : 1955 Arrival Date: 10/20/2024 Time: 10:19 Bed 19 Private MD: ED Physician Justin Morris HPI: 10/20 10:56 This 69 yrs old Male presents to ER via Ambulatory with complaints of Head dr5 pressure with stomach issues. 10:56 Onset: The symptoms/episode began/occurred acutely. Patient is a 69-year-old male with dr5 history of hypertension, hypothyroidism, hyperlipidemia, diabetes coming in for episode of head flushing, abdominal cramping, feeling lightheaded and pale while having bowel movement at home. Patient denies straining while having BM. Patient reports that he went to the bathroom while in ER and is feeling much better. Patient denies any symptoms such as chest pain, abdominal pain, nausea, vomiting. Patient does reports episode of diarrhea in the ER. Patient also reports daily vertigo that resolves after waking up. Patient had 1 cardiac stent placed by Dr. Chung and was taken off of blood thinners about 6 months ago when he had cardiac treadmill stress test that was normal.. Historical: - Allergies: 10:39 No Known Allergies; iw - PMHx: 10:39 Diabetes - NIDDM; Hyperlipidemia; Hypertension; Hypothyroidism; iw - PSHx: 10:39 cardiac stent; Knee replacement; cataract sx; iw - Immunization history:: Adult Immunizations not up to date. - Infectious Disease History:: Denies. - Social history:: Smoking status: Patient denies any tobacco usage or history of. ROS: 10:56 Constitutional: as per hpi dr5 Exam: 10:56 Constitutional: This is a well developed, well nourished patient who is awake, alert, dr5 and in no acute distress. Head/Face: Normocephalic, atraumatic. Eyes: Pupils equal round and reactive to light, extra-ocular motions intact. Lids and lashes normal. Conjunctiva and sclera are non-icteric and not injected. Cornea within normal limits. Periorbital areas with no swelling, redness, or edema. Neck: Trachea midline, no thyromegaly or masses palpated, and no cervical lymphadenopathy. Supple, full range of motion without nuchal rigidity, or vertebral point tenderness. No Meningismus. Chest/axilla: Normal chest wall appearance and motion. Nontender with no deformity. No lesions are appreciated. Cardiovascular: Regular rate and rhythm with a normal S1 and S2. Normal PMI, no JVD. No pulse deficits. Respiratory: Lungs have equal breath sounds bilaterally, clear to auscultation. No rales, rhonchi or wheezes noted. No increased work of breathing, no retractions or nasal flaring. Back: No spinal tenderness. No costovertebral tenderness. Full range of motion. Skin: Warm, dry with normal turgor. Normal color with no rashes, no lesions, and no evidence of cellulitis. Neuro: Awake and alert, GCS 15, oriented to person, place, time, and situation. Cranial nerves II-XII grossly intact. Motor strength 5/5 in all extremities. Sensory grossly intact. Cerebellar exam normal. Normal gait. 11:07 ECG was reviewed by the Attending Physician. dr5 Vital Signs: 10:37 BP 134 / 65; Pulse 58; Resp 19; Pulse Ox 97% on R/A; Weight 115.67 kg; Height 5 ft. 9 iw in. ; 11:08 BP 129 / 53; Pulse 49; Resp 16; Pulse Ox 98% on R/A; db 12:00 BP 146 / 55; Pulse 46; Resp 18; Pulse Ox 98% on R/A; db 13:30 BP 140 / 62; Pulse 42; Resp 16; Pulse Ox 99% on R/A; db 10:37 Body Mass Index 37.66 (115.67 kg, 175.26 cm) iw MDM: 10:24 Medical Screening Exam initiated dr5 12:47 Differential diagnosis: viral Infection, STEMI, NSTEMI, electrolyte abnormality. Data dr5 reviewed: vital signs, nurses notes. Consideration of Admission/Observation Patient was admitted/placed on observation. Care significantly affected by the following Social Determinants of Health: Poor access to healthcare and/or lack of insurance, Poor access to transportation, Problems related to employment. Counseling: I had a detailed discussion with the patient and/or guardian regarding the historical points, exam findings, and any diagnostic results supporting the discharge/admit diagnosis, the need for further work-up and treatment in the hospital. ED course: Will admit for NSTEMI. Patient was given aspirin. Discussed with admitting team who had accepted him.. 10/20 10:56 Order name: Basic Metabolic Panel; Complete Time: 11:39 dr5 10/20 10:56 Order name: CBC with Diff; Complete Time: 11:25 dr5 10/20 10:56 Order name: Troponin HS; Complete Time: 11:39 dr5 10/20 12:16 Order name: BNP; Complete Time: 13:31 la1 10/20 12:59 Order name: Troponin High Sensitivity EDMS 10/20 12:59 Order name: Troponin High Sensitivity EDMS 10/20 12:59 Order name: Troponin High Sensitivity EDMS 10/20 12:16 Order name: Chest Single View XRAY; Complete Time: 13:07 la1 10/20 10:56 Order name: EKG; Complete Time: 10:57 dr5 10/20 10:56 Order name: Cardiac monitoring; Complete Time: 11:15 dr5 10/20 10:56 Order name: EKG - Nurse/Tech; Complete Time: 11:15 dr5 10/20 10:56 Order name: IV Saline Lock; Complete Time: 11:15 dr5 10/20 10:56 Order name: Labs collected and sent; Complete Time: 11:15 dr5 10/20 10:56 Order name: O2 Per Protocol; Complete Time: 11:15 dr5 10/20 10:56 Order name: O2 Sat Monitoring; Complete Time: 11:15 dr5 EC:07 Rate is 48 beats/min. Rhythm is regular. QRS [place] is Normal. HI interval is normal at dr5 208 msec. QRS interval is normal at 106 msec. QT interval is normal at 422 msec. Administered Medications: 11:14 Not Given (Patient Refused): ondansetron 4 mg IVP once; over 2 minutes db 11:15 Drug: NS 0.9% IV 1000 ml IV at 1000 ml once; to be given as a bolus over 60 minutes db Route: IV; Rate: 1000 ml; Site: right forearm; 13:30 Follow up: IV Status: Completed infusion; IV Intake: 1000ml db 11:43 Drug: Aspirin PO Chewable Tablet 324 mg PO once; 81 mg tablets x 4 Route: PO; db 13:30 Follow up: Response: No adverse reaction db Disposition: 13:04 I was immediately available for consultation during this patient's visit. I did not ec2 personally see the patient or discuss the patient with the MORE. . Disposition Summary: 10/20/24 12:35 Hospitalization Ordered Notes: Hospitalization Status: Observation dr5 Provider: Eladio Hameed Location: Telemetry/MedSurg (observation) dr5 Condition: Stable dr5 Problem: new dr5 Symptoms: are unchanged dr5 Bed/Room Type: Standard dr5 Room Assignment: 225(10/20/24 13:12) eb Diagnosis - Subsequent non-ST elevation (NSTEMI) myocardial infarction dr5 Forms: - Medication Reconciliation Form dr5 - SBAR form dr5 - Leadership Thank You Letter dr5 Signatures: Dispatcher [employer] Mignon Keenan, RN RN Maya Walton Danielle, RN RN db Justin Morris MD MD ec2 Pito Ritchie, [employer] LEAD-Cdr5 Corrections: (The following items were deleted from the chart) 11:59 10:56 Patient is a 69-year-old male with history of hypertension, hypothyroidism, dr5 hyperlipidemia, diabetes coming in for episode of head flushing, abdominal cramping, feeling lightheaded and pale while having bowel movement at home. Patient denies straining while having BM. Patient reports that he went to the bathroom while in ER and is feeling much better. Patient denies any symptoms such as chest pain, abdominal pain, nausea, vomiting. Patient does reports episode of diarrhea in the ER.. dr5 13:12 12:35 dr5 eb
--- NOTE | 2024-10-20 12:36 | ER ---
Nurse's Notes [facility] Name: Jhony Fajardo Age: 69 yrs Sex: Male : 1955 Arrival Date: 10/20/2024 Time: 10:19 Bed 19 Private MD: Diagnosis: Subsequent non-ST elevation (NSTEMI) myocardial infarction Presentation: 10/20 10:37 Chief complaint: Patient states: had a BM today and it was normal but then he had iw another BM and got sweaty and flushed and he had a lot of pressure in his head . for the past week and half he has been dealing with mild vertigo. Coronavirus screen: At this time, the client does not indicate any symptoms associated with coronavirus-19. Ebola Screen: No symptoms or risks identified at this time. Initial Sepsis Screen: Does the patient meet any 2 criteria? No. Patient's initial sepsis screen is negative. Does the patient have a suspected source of infection? No. Patient's initial sepsis screen is negative. Risk Assessment: Do you want to hurt yourself or someone else? Patient reports no desire to harm self or others. Onset of symptoms was October 20, 2024. 10:37 Method Of Arrival: Ambulatory iw 10:37 Acuity: DELFINO 3 iw Historical: - Allergies: 10:39 No Known Allergies; iw - PMHx: 10:39 Diabetes - NIDDM; Hyperlipidemia; Hypertension; Hypothyroidism; iw - PSHx: 10:39 cardiac stent; Knee replacement; cataract sx; iw - Immunization history:: Adult Immunizations not up to date. - Infectious Disease History:: Denies. - Social history:: Smoking status: Patient denies any tobacco usage or history of. Screenin:55 [facility] ED Fall Risk Assessment (Adult) History of falling in the last 3 months, iw including since admission No falls in past 3 months (0 pts) Confusion or Disorientation No (0 pts) Intoxicated or Sedated No (0 pts) Impaired Gait No (0 pts) Mobility Assist Device Used No (0 pt) Altered Elimination No (0 pt) Score/Fall Risk Level 0 - 2 = Low Risk Oriented to surroundings. Abuse screen: Denies threats or abuse. Denies injuries from another. Nutritional screening: No deficits noted. Tuberculosis screening: No symptoms or risk factors identified. Assessment: 11:00 Reassessment: Patient appears in no apparent distress at this time. Patient and/or db family updated on plan of care and expected duration. Pain level reassessed. Patient is alert, oriented x 3, equal unlabored respirations, skin warm/dry/pink. General: Appears in no apparent distress. comfortable, Behavior is calm, cooperative. Pain: Denies pain. Neuro: Level of Consciousness is awake, alert, obeys commands, Oriented to person, place, time, situation. Respiratory: Airway is patent Respiratory effort is even, unlabored, Respiratory pattern is regular, symmetrical. GI: Reports diarrhea. 12:00 Reassessment: Patient appears in no apparent distress at this time. Patient and/or db family updated on plan of care and expected duration. Pain level reassessed. Patient is alert, oriented x 3, equal unlabored respirations, skin warm/dry/pink. 13:30 Reassessment: Patient appears in no apparent distress at this time. Patient and/or db family updated on plan of care and expected duration. Pain level reassessed. Patient is alert, oriented x 3, equal unlabored respirations, skin warm/dry/pink. Vital Signs: 10:37 BP 134 / 65; Pulse 58; Resp 19; Pulse Ox 97% on R/A; Weight 115.67 kg; Height 5 ft. 9 iw in. ; 11:08 BP 129 / 53; Pulse 49; Resp 16; Pulse Ox 98% on R/A; db 12:00 BP 146 / 55; Pulse 46; Resp 18; Pulse Ox 98% on R/A; db 13:30 BP 140 / 62; Pulse 42; Resp 16; Pulse Ox 99% on R/A; db 10:37 Body Mass Index 37.66 (115.67 kg, 175.26 cm) ED Course: 10:22 Patient arrived in ED. ra3 10:24 [facility]itch[facility] 10:24 Justin Morris MD is Attending Physician. dr5 10:39 Triage completed. iw 10:40 Laura Sheppard, RN is Primary Nurse. db 10:40 Arm band placed on. iw 11:05 Initial lab(s) drawn, by me, sent to lab. EKG done. Inserted saline lock: 20 gauge in db right forearm, using aseptic technique. Blood collected. Flushed with 10 mL NS. 11:15 Patient has correct armband on for positive identification. Bed in low position. Call db light in reach. Side rails up X 1. Provided Education on:. Client placed on continuous cardiac and pulse oximetry monitoring. NIBP monitoring applied. monitor technician on. Pulse ox on. NIBP on. 12:34 Eladio Hameed MD is Hospitalizing Provider. dr5 12:58 Chest Single View XRAY In Process Unspecified. EDMS 13:55 No provider procedures requiring assistance completed. Patient admitted, IV remains in iw place. Administered Medications: 11:14 Not Given (Patient Refused): ondansetron 4 mg IVP once; over 2 minutes db 11:15 Drug: NS 0.9% IV 1000 ml IV at 1000 ml once; to be given as a bolus over 60 minutes db Route: IV; Rate: 1000 ml; Site: right forearm; 13:30 Follow up: IV Status: Completed infusion; IV Intake: 1000ml db 11:43 Drug: Aspirin PO Chewable Tablet 324 mg PO once; 81 mg tablets x 4 Route: PO; db 13:30 Follow up: Response: No adverse reaction db Medication: 13:55 VIS not applicable for this client. iw Intake: 13:30 IV: 1000ml; Total: 1000ml. db Outcome: 12:35 Decision to Hospitalize by Provider. dr5 13:54 Admitted to Med/surg accompanied by tech, room 225, iw 13:54 Condition: good 13:54 Discharge instructions given to patient, Instructed on the need for admit, Demonstrated understanding of instructions, 13:55 Patient left the ED. iw Signatures: Dispatcher [employer] Mignon Keenan RN RN iw Laura Sheppard RN RN db Alva, Ruby ra3 Pito Ritchie, PIECE WORK CHECKER-C PIECE WORK CHECKER-Cdr5 Corrections: (The following items were deleted from the chart) 11:15 11:14 NS 0.9% IV 1000 ml IV at 1000 ml in right antecubital db db
--- NOTE | 2024-10-20 13:05 | RAD REPORT ---
EXAMINATION: ONE VIEW CHEST XR CLINICAL INDICATION: elevated trop, near syncope TECHNIQUE: Frontal chest projection is submitted. Examination is limited by patient positioning and t echnique. COMPARISON: 09/11/2018 FINDINGS: The lungs are well inflated and clear. The heart is upper limit of normal in size. No displaced fract ures identified. IMPRESSION: No acute intrathoracic abnormalities.
[2024-10-20] MEDS ORDERED: ONDANSETRON 4 MG/2 ML VIAL IV PRN (13:12)
[2024-10-20] MEDS ORDERED: ZOLPIDEM TARTRATE 5 MG TABLET PO PRN (13:12)
[2024-10-20 14:02] VITALS: BMI 37.6
--- NOTE | 2024-10-20 15:07 | P.HP ---
Certification for Inpatient Patient admitted to: Observation With expected LOS: <2 Midnights Patient will require the following post-hospital care: None Practitioner: I am a practitioner with admitting privileges, knowledge of patient current condition, hospital course, and medical plan of care. Services: Services provided to patient in accordance with Admission requirements found in Title 42 Section 412.3 of the Code of Federal Regulations Patient History Date of Service: 10/20/24 History of Present Illness: 69-year-old male with history of hypertension, hyperlipidemia, no p-xbeaqtu-mgyodzedz diabetes, BPH, CAD with previous PCI, obstructive sleep apnea presents to the emergency department chief complaint of dizziness, fatigue, flushing. Patient reports coming down with what seems like a respiratory virus recently, feeling unwell with vertiginous symptoms primarily in the morning for the past 1 week or so. He reports shortly after having a bowel movement earlier today he noticed his eyes were bloodshot and he was feeling unwell so he came to the hospital for evaluation. He was evaluated in the emergency department his labs were significant for initial high sensitive troponin of 87.2, BNP 133 chest x-ray was negative for acute findings. Given his elevated troponin ED provider wishes to admit patient for further evaluation. Patient reports seeing his public service officer a few months ago having outpatient stress and echo which were reportedly normal. He is known to have a low resting heart rate in the low to mid 40s throughout his entire life. He had a heart catheterization around 5 to 6 years ago with 1 stent placement he believes in the LAD or left main. Patient admitted under observation for elevated troponin level. Allergies No Known Allergies Allergy (Verified 09/11/18 12:19) Home Medications: Amlodipine [Norvasc*] 2 tab PO DAILY 12/10/16 Lisinopril 40 mg PO DAILY 12/10/16 Rosuvastatin Calcium [Crestor] 1 tab PO BEDTIME 12/10/16 Aspirin Chewable [Aspirin Chewable*] 81 mg PO DAILY AT SUPPER 09/11/18 Folic Acid/Multivit-Min/Lutein [Multi-Vitamin Gummies] 1 tab PO DAILY 09/11/18 Lactobacillus Combo No.13 [Probiotic Pearls Complete] 1 each PO DAILY 09/11/18 Levothyroxine [Synthroid*] 1 tab PO [id number] 09/11/18 Tamsulosin HCl 0.4 mg PO DAILY 09/11/18 Turmeric/Turmeric Root Extract [Turmeric 500 mg Capsule] 2 each PO DAILY 09/11/18 Metformin ER [Glucophage ER*] 500 mg PO BID 10/20/24 - Past Medical/Surgical History Has patient received pneumonia vaccine in the past: Yes Diabetic: Yes -: "boarderline diabetic" -: cardiac stent x1 -: HTN -: GERD -: appy -: L shoulder pain -: bilat aretoscopic knee -: 08/2018 Rt TKR - Family History Father -: Hypertension Mother -: Cancer Notes: Breast cancer Brother -: Hypertension - Social History Smoking Status: Former smoker Alcohol use: Yes CD- Drugs: No Caffeine use: Yes Place of Residence: Home Review of Systems 10-point ROS is otherwise unremarkable General: Malaise, Other (Fatigue, dizziness) Physical Examination - Vital Signs Temperature: 97.8 F Blood Pressure: 129/53 Pulse: 49 Respirations: 16 Pulse Ox (%): 96 - Physical Exam General: Alert, In no apparent distress HEENT: Atraumatic, PERRLA, Mucous membr. moist/pink, EOMI Neck: Supple, 2+ carotid pulse no bruit, No LAD Respiratory: Clear to auscultation bilaterally, Normal air movement Cardiovascular: Regular rate/rhythm, Normal S1 S2 Gastrointestinal: Normal bowel sounds, No tenderness Musculoskeletal: No tenderness Integumentary: No rashes Neurological: Normal gait, Normal speech, Normal strength at 5/5 x4 extr - Studies Laboratory Data (last 24 hrs) 10/20/24 10/20/24 11:05 11:05 WBC 8.80 Hgb 16.0 Hct 46.7 Plt Count 259 Sodium 141 Potassium 3.8 BUN 17 Creatinine 0.98 Glucose 153 H Assessment and Plan - Plan Assessment: Elevated troponinhistory of CAD with previous PCI Diabetes mellitus type [id number] Hypertension Hyperlipidemia BPH Johnathan Plan: Elevated troponinhistory of CAD with previous PCI Denies chest pain/shortness of breath EKG without STEMI criteria Reports stress test/echo a few months ago with his public service officer which were fine Heart cath 5 to 6 years ago with stent he believes in the LAD or left main Continue aspirin, statin, monitor on telemetry Trend troponins, cardiology consult Diabetes mellitus type [id number] ACHS Accu-Chek, sliding scale insulin Hypertension Hyperlipidemia BPH Johnathan Continue home medication/CPAP DVT PPX: Lovenox Code status: Full Discharge Plan: Home Plan to discharge in: 24 Hours - Advance Directives Does patient have a Living Will: No Does patient have a Durable POA for Healthcare: No - Code Status/Comfort Care Code Status Assessed: Yes (Full code) Critical Care: No Time Spent Managing Pts Care (In Minutes): 62
[2024-10-20] MEDS: ATORVASTATIN 40 MG TAB PO SCH (20:11)
[2024-10-20] MEDS: INSULIN REGULAR (HUMAN) 100 UNIT/ML SQ SCH (21:00)
[2024-10-20] MEDS: TAMSULOSIN 0.4 MG SR CAP PO SCH (21:00)
--- NOTE | 2024-10-21 07:45 | P.PN ---
Date of Service: 10/21/24 Patient having small amount bright red blood in stool this AM and dizziness Will hold ASA, lovenox this morning CT Abd/head ordered Pending AM labs NPO until CT results in
[2024-10-21 08:51] LABS: Absolute Basophils 0.1 K/uL (0-0.5); Absolute Eosinophils 0.3 K/uL (0-0.5); Absolute Lymphocytes (CBC) 1.5 K/uL (0.7-4.9); Absolute Monocytes 0.7 K/uL (0.1-1.3); Eosinophils % 2.8 % (0-4.4); Hematocrit 42.7 % (39.6-49.0); Hemoglobin 14.9 g/dL (13.6-17.9); Lymphocytes % 14.5 % (15.3-44.8); MCH 33.9 pg (27.0-35.0); MCHC 34.8 g/dL (32.0-36.0); MCV 97.3 fL (80-100); MPV 8.8 fL (7.6-11.3); Monocytes % 6.3 % (3.3-12.3); Neutrophils % 75.4 % (41.7-73.7); Platelets 225 thou/uL (152-406); RBC Red Blood Cell Count 4.39 M/uL (4.33-5.43); Red Cell Distribution Width 12.8 % (12.1-15.2)
[2024-10-21] MEDS ORDERED: ENOXAPARIN 40 MG/0.4 ML SQ SCH (09:00)
[2024-10-21] MEDS ORDERED: ASPIRIN EC 81 MG TAB PO SCH (09:00)
[2024-10-21 09:19] LABS: Thyroid Stimulating Hormone 1.93 uIU/mL (0.358-3.740)
[2024-10-21] MEDS: AMLODIPINE 10 MG TAB PO SCH (10:25)
[2024-10-21] MEDS: lisinopriL 20 MG TAB PO SCH (10:25)
[2024-10-21] MEDS: TAMSULOSIN 0.4 MG SR CAP PO SCH (10:25)
--- NOTE | 2024-10-21 11:35 | RAD REPORT ---
EXAM: CT brain without contrast HISTORY: Dizziness COMPARISON: 2018 MRI TECHNIQUE: Multiple contiguous axial images were obtained and a CT of the brain without contrast.. Sagittal and coronal reconstruction performed. Automated exposure control, adjustment of the mA and/or kV according to patient size, and/or iterative reconstruction. Unless otherwise specified, incidental f indings do not require dedicated imaging follow-up FINDINGS: An intracranial bleed is not seen Ventricles are normal caliber No extra-axial fluid collection noted No significant hypodensity within the brain No fluid within the visualized sinuses or mastoids noted.. Mild compression thickening left maxillary sinus and ethmoid sinus. IMPRESSION: No acute intracranial abnormality noted. If the patient continues to have symptoms to suggest an acute intracranial abnormality then MRI of th e brain would be recommended.
--- NOTE | 2024-10-21 11:52 | RAD REPORT ---
EXAMINATION: CT ABDOMEN AND PELVIS WITH CONTRAST CLINICAL INDICATION: Abdominal pain. Hematochezia TECHNIQUE: CT abdomen and pelvis was performed, after the administration of 100 cc Isovue-300.. Sagit raymon and coronal reconstructions were obtained. One or more of the following dose reduction techniques were used: Automated exposure control, adjustment of the mA and kV according to patient si ze, and iterative reconstruction. Unless otherwise specified, incidental findings do not require dedicated imaging follow-up. [id number]. Oral contrast was not given which limits evaluation of bowel and appendix. COMPARISON: .2022 FINDINGS: Fatty liver. The spleen, pancreas, adrenals and kidneys appear unremarkable No evidence of diverticulitis.. Marked thickening of the wall of the ascending colon with stranding in the adjacent fat colitis. Pneu matosis intestinalis not present. Spondylosis lumbar spine results in spinal stenosis : IMPRESSION: Marked colitis descending colon
[2024-10-21] MEDS ORDERED: MORPHINE 2 MG/ML SYR IV PRN (12:29)
[2024-10-21] MEDS: CIPROFLOXACIN 400mg IV 400 MG/200 ML BAG IV SCH (13:09)
[2024-10-21] MEDS: METRONIDAZOLE 500mg IVPB 500 MG/100 ML BAG IV SCH (13:10)
--- NOTE | 2024-10-21 14:15 | P.PN ---
Date of Service: 10/21/24 Subjective: Had a few episodes of diarrhea overnight but this is improving This morning had some soft formed stools with blood present Denies chest pain, shortness of breath overnight troponin downtrending CT shows marked colitis ROS: 10 point ROS as noted above, otherwise negative Physical exam GEN: Alert, oriented, NAD HEENT: Normal conjunctiva, sclera anicteric CV: Regular rate and rhythm, no edema Pulm: Nonlabored respirations on room air ABD: Soft, mild generalized abdominal tenderness, nondistended MSK: No joint tenderness Integumentary: No rashes Neuro: Normal speech, normal affect Vitals reviewed Assessment: Elevated troponinhistory of CAD with previous PCI Marked colitis, hematochezia Diabetes mellitus type [id number] Hypertension Hyperlipidemia BPH Johnathan Plan: Elevated troponinhistory of CAD with previous PCI Denies chest pain/shortness of breath EKG without STEMI criteria Reports stress test/echo a few months ago with his purchasing internship which were fine Heart cath 5 to 6 years ago with stent he believes in the LAD or left main Holding aspirin given bright red blood per rectum, continue statin, monitor on telemetry Noted downtrending, appreciate further improvement cardiology Marked colitis, hematochezia CT shows colitis started on Cipro, Flagyl Right red blood in the stool x 2 today, small amount repeat H/H this evening Clear liquid diet, advance as tolerated Diabetes mellitus type [id number] ACHS Accu-Chek, sliding scale insulin Hypertension Hyperlipidemia BPH Johnathan Continue home medication/CPAP DVT PPX: Lovenox Code status: Full Discharge Plan: Home Plan to discharge in: 24-48 hours Time Spent Managing Pts Care (In Minutes): 35
--- NOTE | 2024-10-21 14:52 | P.CNS ---
Date of Consult: 10/21/24 Chief Complaint: vertigo History of Present Illness: Patient with PMH of CAD, pci presented with vertigo, nausea, diarrhea, denies chest pain, no palpitations, no SOB, no syncope. Allergies No Known Allergies Allergy (Verified 09/11/18 12:19) Home medications list reviewed: Yes Home Medications: Amlodipine [Norvasc*] 2 tab PO DAILY 12/10/16 Lisinopril 40 mg PO DAILY 12/10/16 Rosuvastatin Calcium [Crestor] 1 tab PO BEDTIME 12/10/16 Aspirin Chewable [Aspirin Chewable*] 81 mg PO DAILY AT SUPPER 09/11/18 Folic Acid/Multivit-Min/Lutein [Multi-Vitamin Gummies] 1 tab PO DAILY 09/11/18 Lactobacillus Combo No.13 [Probiotic Pearls Complete] 1 each PO DAILY 09/11/18 Levothyroxine [Synthroid*] 1 tab PO [id number] 09/11/18 Tamsulosin HCl 0.4 mg PO DAILY 09/11/18 Turmeric/Turmeric Root Extract [Turmeric 500 mg Capsule] 2 each PO DAILY 09/11/18 Metformin ER [Glucophage ER*] 500 mg PO BID 10/20/24 - Past Medical/Surgical History Diabetic: Yes -: "boarderline diabetic" -: cardiac stent x1 -: HTN -: GERD -: appy -: L shoulder pain -: bilat aretoscopic knee -: 08/2018 Rt TKR - Family History Father Medical History: Hypertension Mother Medical History: Cancer Notes: Breast cancer Brother Medical History: Hypertension - Social History Smoking Status: Current some day smoker Alcohol use: Yes CD- Drugs: No Caffeine use: Yes Place of Residence: Home Review of Systems 10-point ROS is otherwise unremarkable Physical Examination Temp Pulse Resp BP Pulse Ox 97.9 F 41 L 16 152/67 H 98 10/21/24 12:00 10/21/24 12:00 10/21/24 12:00 10/21/24 12:00 10/21/24 12:00 General: Alert, In no apparent distress HEENT: Atraumatic, PERRLA, Mucous membr. moist/pink, EOMI, Sclerae nonicteric Neck: Supple, 2+ carotid pulse no bruit, No LAD, Without JVD or thyroid abnormality Respiratory: Clear to auscultation bilaterally, Normal air movement Cardiovascular: Regular rate/rhythm, Normal S1 S2 Gastrointestinal: Normal bowel sounds, No tenderness Musculoskeletal: No tenderness Integumentary: No rashes Neurological: Normal gait, Normal speech, Normal tone, Normal affect Lymphatics: No axilla or inguinal lymphadenopathy - Problems (1) Troponin level elevated Current Visit: Yes Status: Acute Plan: no chest pain, no significant EKG changes, no significant delta. most likely type 2 [facility] continue ASA and Lipitor get echo in am (2) HTN (hypertension) Current Visit: Yes Status: Acute Plan: on amlodipine and lisinopril consider adding HCTZ 12.5 mg daily for better control (3) Hematochezia Current Visit: Yes Status: Acute Plan: pending GI evaluation.
--- NOTE | 2024-10-21 21:23 | CON ---
Date of Consultation: 10/21/2024 Reason For Consultation: Colitis noted on CT scan with hematochezia, change in bowel habits, diarrhe a. History Of Present Illness: This patient is a 69-year-old white male with history of hypertension; b orderline diabetes; coronary artery disease, status post cardiac stent x1. The patient presented to hospital with hematochezia, diarrhea, and headaches. The patient states he was in his usual state of health with sudden onset of headache, began having bowel movements and then later on diarrhea, and t hen later on he had hematochezia. He denies any abdominal pain, nausea, vomiting, fevers, chills, ni ght sweats. His last colonoscopy was approximately 8 years ago performed in [facility]. He had 2 colon polyps removed at that time. Also, on this admission, he noted some dizzines s over the past 10 days. Troponin Is have been elevated, and he is supposed to have echocardiogram i n the morning with further cardiology evaluation of this. Past Medical History: As stated is significant for hypertension; borderline diabetes; coronary arter y disease, status post cardiac stent x1; gastric reflux disease; appendectomy; left shoulder pain; ri ght total knee replacement; bilateral knee arthroscopies. Medications: At home include amlodipine, lisinopril, Crestor, aspirin, multivitamin, probiotics, ___ Synthroid, tamsulosin, turmeric, metformin. Allergies: NKDA. Social History: He is , 1 daughter. No tobacco, quit December 2023. Positive for alcohol. Or iginally from [place] in the [place]. Family History: Father of choked on bread, but also had a history of hypertension as per chart review. Mother at the age of 47 from breast cancer with myocardial infarction while making his bed when he was 12 years old. One brother has hypertension. Review of Systems: The patient has hematochezia, change in bowel habits, diarrhea, headaches, but no abdominal pain, magda sea, vomiting, fevers, chills, night sweats, hematemesis, coffee grounds emesis, hemoptysis, hematuri a, dysuria, polydipsia, melena, depression, anxiety, muscle aches, joint aches, backaches. No chest pain, seizure, or syncope. Physical Examination: Vital Signs: He is 5 feet 9 inches, 255 pounds, BMI 37.7 kg/square meter. Temperature 97.9 degrees Fahrenheit, pulse 41, respirations 16, blood pressure 152/67, O2 saturation 98% on room air. General: He is obese male sitting in bed, comfortable. No acute distress. HEENT: Normocephalic, atraumatic. Anicteric. Pupils equal, round, and reactive to light. Extraocu lar movements are intact. Oropharynx is clear. Neck: Supple. No masses. Lungs: Respirations clear to auscultation bilaterally. Cardiac: Regular rate and rhythm. Gastrointestinal: Positive bowel sounds. Soft, nontender, nondistended. Obese. No hepatosplenomeg jose. No peritoneal or Ron sign. Extremities: No clubbing or cyanosis. Trace lower extremity edema. 2+ pulses. Neuro: Alert and oriented x3. Grossly nonfocal. 5/5 motor. Sensation intact to light touch. Laboratory Data: The patient has a white count of 10.5, hemoglobin of 14.9, hematocrit of 42.7, MCV of 97, platelet count 225, polys 75%, lymphocytes 15%, monocytes 6%, eosinophils 3%, basophils 1%. H is sodium 139, potassium 4.0, chloride 111, bicarb 24, BUN 13, creatinine 0.92, glucose 143, calcium 8.8. Troponin I elevated 73.5, and prior ones are 75.9 and 87.2, trending down. TSH of 1.93 and mumtaz e T4 0.85. CT abdomen and pelvis revealed marked colitis of the descending colon. Impression: 1.Colitis with hematochezia, change in bowel habits, diarrhea. Abdomen and pelvis revealed marked c olitis in the descending colon, possibly consistent with ischemic colitis or infection, but more like ly ischemia associated with headaches prior to onset of symptoms, including change in bowel habits, d iarrhea, and hematochezia, but the patient denies any abdominal pain, fevers, chills, night sweats, n ausea, vomiting. Last colonoscopy was 8 years ago revealed 2 polyps [facility] [place], [place]. 2.Elevated troponin I with dizziness for the past 7 to 10 days. Cardiology evaluation is ongoing at this time. 3.History of hypertension; borderline diabetes; coronary artery disease, status post cardiac stent x 1; gastric reflux disease; appendectomy; left shoulder pain; total right knee replacement; bilateral knee arthroscopies. Recommendation: 1.Continue IV fluids, IV antibiotics. 2.Continue p.r.n. pain meds, antiemetics. 3.Check stool studies. 4.Await echocardiogram tomorrow. 5.Consider colonoscopy. 6.Serial H and H, and transfuse p.r.n. ROSIE/MARIVEL Voice ID: [id number] Report ID: [id number]
[2024-10-22 05:35] LABS: Absolute Basophils 0.1 K/uL (0-0.5); Absolute Eosinophils 0.3 K/uL (0-0.5); Absolute Lymphocytes (CBC) 1.5 K/uL (0.7-4.9); Absolute Monocytes 0.7 K/uL (0.1-1.3); Absolute Neutrophil 7.1 K/uL (1.8-8.0); Basophils % 0.7 % (0-1.3); Eosinophils % 3.2 % (0-4.4); Hematocrit 41.8 % (39.6-49.0); Hemoglobin 14.6 g/dL (13.6-17.9); Lymphocytes % 15.2 % (15.3-44.8); MCH 34.2 pg (27.0-35.0); MCV 97.6 fL (80-100); MPV 8.6 fL (7.6-11.3); Monocytes % 7.3 % (3.3-12.3); Neutrophils % 73.6 % (41.7-73.7); Nucleated Red Blood Cells % 0.1 % (0-0); Platelets 221 thou/uL (152-406); RBC Red Blood Cell Count 4.28 M/uL (4.33-5.43); Red Cell Distribution Width 12.8 % (12.1-15.2)
[2024-10-22 05:51] LABS: Anion Gap 8.5 mEq/L (5.0-15.0); Potassium 3.5 mEq/L (3.5-5.1)
[2024-10-22] MEDS: POTASSIUM 25 MEQ EFFERV TAB PO ONE (09:35)
[2024-10-22 12:21] VITALS: BP 159/70; TEMP 97.6
--- NOTE | 2024-10-22 12:46 | P.PN ---
Subjective Date of Service: 10/22/24 Chief Complaint: vertigo Subjective: No new changes, No C/O voiced, Tolerating diet, Ambulating, Improving Review of Systems 10-point ROS is otherwise unremarkable Physical Examination - Vital Signs Temperature: 97.6 F Blood Pressure: 159/70 Pulse: 46 Respirations: 17 Pulse Ox (%): 99 - Physical Exam General: Alert, In no apparent distress HEENT: Atraumatic, PERRLA, EOMI Neck: Supple, JVD not distended Respiratory: Clear to auscultation bilaterally, Normal air movement Cardiovascular: Regular rate/rhythm, Normal S1 S2 Gastrointestinal: Normal bowel sounds, No tenderness Musculoskeletal: No tenderness Integumentary: No rashes Neurological: Normal speech, Normal tone, Normal affect Lymphatics: No axilla or inguinal lymphadenopathy - Studies Medications List Reviewed: Yes Assessment And Plan - Current Problems (Diagnosis) (1) Troponin level elevated Current Visit: Yes Status: Acute Plan: no chest pain, no significant EKG changes, no significant delta. most likely type 2 MO continue ASA and Lipitor Echo shows normal EF and normal caballero motion (2) HTN (hypertension) Current Visit: Yes Status: Acute Plan: on amlodipine and lisinopril consider adding HCTZ 12.5 mg daily for better control (3) Hematochezia Current Visit: Yes Status: Acute Plan: follow up GI recommendations.
--- NOTE | 2024-10-22 14:20 | ECHO ---
HEIGHT: 5 ft 9 in WEIGHT: 255 lb 0 oz DATE OF STUDY: 10/22/[address]: Elias Jonas NP 2-DIMENSIONAL: YES M.MODE: YES DOPPLER: YES COLOR FLOW: YES TDS: NO PORTABLE: YES DEFINITY: NO BUBBLE STUDY: NO DIAGNOSIS: ELEVATED TROPONIN CARDIAC HISTORY: CATHERIZATION:YES SURGERY: NO PROSTHETIC VALVE: NO PACEMAKER: NO MEASUREMENTS (cm) DIASTOLIC (NORMALS) SYSTOLIC (NORMALS) IVSd 1.0 (0.6-1.2) LA Diam 4.3 (1.9-4.0) LVEF 60-65% LVIDd 5.6 (3.5-5.7) LVIDs 3.9 (2.0-3.5) %FS 30% LVPWd 1.2 (0.6-1.2) Ao Diam 2.9 (2.0-3.7) 2 DIMENSIONAL ASSESSMENT: RIGHT ATRIUM: NORMAL LEFT ATRIUM: NORMAL RIGHT VENTRICLE: NORMAL LEFT VENTRICLE: NORMAL TRICUSPID VALVE: MILD TRICUSPID REGURGITATION MITRAL VALVE: TRACE MITRAL REGURGITATION PULMONIC VALVE: NORMAL AORTIC VALVE: NORMAL PERICARDIAL EFFUSION: NONE AORTIC ROOT: NORMAL LEFT VENTRICULAR WALL MOTION: NORMAL. DOPPLER/COLOR FLOW: NORMAL. COMMENTS: 1. NORMAL LEFT VENTRICULAR SYSTOLIC FUNCTION. LEFT VENTRICULAR EJECTION FRACTION 60-65%. NORMAL WALL MOTION. 2. NORMAL DIASTOLIC FUNCTION. TECHNOLOGIST: GILBERTO GALARZA
--- NOTE | 2024-10-22 14:24 | P.DS ---
Admission Date: 10/21/24 Discharge Date: 10/22/24 Disposition: ROUTINE DISCHARGE Discharge Condition: GOOD Reason for Admission: vertigo Brief History of Present Illness: 69-year-old male with history of hypertension, hyperlipidemia, n [id number] diabetes, BPH, CAD with previous PCI, obstructive sleep apnea presents to the emergency department chief complaint of dizziness, fatigue, flushing. Patient reports coming down with what seems like a respiratory virus recently, feeling unwell with vertiginous symptoms primarily in the morning for the past 1 week or so. He reports shortly after having a bowel movement earlier today he noticed his eyes were bloodshot and he was feeling unwell so he came to the hospital for evaluation. He was evaluated in the emergency department his labs were significant for initial high sensitive troponin of 87.2, BNP 133 chest x-ray was negative for acute findings. Given his elevated troponin ED provider wishes to admit patient for further evaluation. 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 He is known to have a low resting heart rate in the low to mid 40s throughout his entire life. He had a heart catheterization around 5 to 6 years ago with 1 stent placement he believes in the LAD or left main. Patient admitted under observation for elevated troponin level. Hospital Course: Assessment: Elevated troponinhistory of CAD with previous PCI Marked colitis, hematochezia Diabetes mellitus type [id number] Hypertension Hyperlipidemia BPH Johnathan 69-year-old male was admitted to the hospital after experiencing an episode of dizziness, flushing and changes in his stool. His high-sensitivity troponin was initially elevated at 87.2, trended down to 73.5. Patient is a low resting heart rate in the low 40s, he states that he has been like this since as long as he can remember. During his hospitalization he developed hematochezia, his hemoglobin remained stable and is currently 14.6 white blood cell count also was normal today is 9.7. He has remained afebrile without any significant abdominal pain or tenderness. CT was performed given his hematochezia showed a marked colitis pattern of the descending colon. He was started on IV antibiotics with Cipro/Flagyl as unwell for the last 24 hours on antibiotics. He was seen by GI and cardiology and is stable for further management as an outpatient. Prescriptions for Cipro/Flagyl, given to patient to bring to his pharmacy as they do not accept electronic prescriptions. 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 Vital Signs/Physical Exam: Temp Pulse Resp BP Pulse Ox 97.6 F 46 L 17 159/70 H 99 10/22/24 12:45 10/22/24 12:45 10/22/24 12:45 10/22/24 12:45 10/22/24 12:45 General: Alert, In no apparent distress, Oriented x3 HEENT: Atraumatic, PERRLA Neck: Supple, JVD not distended Respiratory: Clear to auscultation bilaterally, Normal air movement Cardiovascular: Regular rate/rhythm, Normal S1 S2 Gastrointestinal: Normal bowel sounds, No tenderness Musculoskeletal: No tenderness Integumentary: No rashes Neurological: Normal speech, Normal tone, Normal affect Laboratory Data at Discharge: WBC 9.70 thou/uL (4.3-10.9) 10/22/24 05:18 Hgb 14.6 g/dL (13.6-17.9) 10/22/24 05:18 Hct 41.8 % (39.6-49.0) 10/22/24 05:18 Plt Count 221 thou/uL (152-406) 10/22/24 05:18 Sodium 141 mEq/L (136-145) 10/22/24 05:18 Potassium 3.5 mEq/L (3.5-5.1) 10/22/24 05:18 BUN 9 mg/dL (7-18) 10/22/24 05:18 Creatinine 0.87 mg/dL (0.70-1.30) 10/22/24 05:18 Glucose 131 mg/dL (74-106) H 10/22/24 05:18 Home Medications: Amlodipine [Norvasc*] 2 tab PO DAILY 12/10/16 Lisinopril 40 mg PO DAILY 12/10/16 Rosuvastatin Calcium [Crestor] 1 tab PO BEDTIME 12/10/16 Aspirin Chewable [Aspirin Chewable*] 81 mg PO DAILY AT SUPPER 09/11/18 Folic Acid/Multivit-Min/Lutein [Multi-Vitamin Gummies] 1 tab PO DAILY 09/11/18 Lactobacillus Combo No.13 [Probiotic Pearls Complete] 1 each PO DAILY 09/11/18 Levothyroxine [Synthroid*] 1 tab PO [id number] 09/11/18 Tamsulosin HCl 0.4 mg PO DAILY 09/11/18 Turmeric/Turmeric Root Extract [Turmeric 500 mg Capsule] 2 each PO DAILY 09/11/18 Metformin ER [Glucophage ER*] 500 mg PO BID 10/20/24 Ciprofloxacin HCl 500 mg PO BID 10 Days #20 tab 10/22/24 metroNIDAZOLE [Flagyl] 500 mg PO Q8H 10 Days #30 tab 10/22/24 New Medications: Ciprofloxacin HCl 500 mg PO BID 10 Days #20 tab metroNIDAZOLE [Flagyl] 500 mg PO Q8H 10 Days #30 tab Physician Discharge Instructions: 69-year-old male was admitted to the hospital after experiencing an episode of dizziness, flushing and changes in his stool. His high-sensitivity troponin was initially elevated at 87.2, trended down to 73.5. Patient is a low resting heart rate in the low 40s, he states that he has been like this since as long as he can remember. During his hospitalization he developed hematochezia, his hemoglobin remained stable and is currently 14.6 white blood cell count also was normal today is 9.7. He has remained afebrile without any significant abdominal pain or tenderness. CT was performed given his hematochezia showed a marked colitis pattern of the descending colon. He was started on IV antibiotics with Cipro/Flagyl as unwell for the last 24 hours on antibiotics. He was seen by GI and cardiology and is stable for further management as an outpatient. Prescriptions for Cipro/Flagyl, given to patient to bring to his pharmacy as they do not accept electronic prescriptions. 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 Diet: [place] Activity: Ad italia Followup: Derek Willard MD [ACTIVE - CAN ADMIT] - Roldan Chun MD [ASSOCIATE-ACTIVE - CAN ADMIT] - Sheree Thomas [Primary Care Provider] - 1 Week Time spent managing pt's care (in minutes): 38
[2024-10-22 14:51] VITALS: O2SAT 99
--- NOTE | 2024-10-29 11:18 | EKG ---
Test Date: 2024-10-20 Test Time: 11:07:23 Muffle Worker: JESSICA MEASUREMENT RESULTS: Intervals: Rate: 48 IL: 208 QRSD: 106 QT: 422 QTc: 376 [place]: P: 57 IL: 208 QRS: 26 T: 68 INTERPRETIVE STATEMENTS: Sinus bradycardia Otherwise normal ECG Compared to ECG 09/11/2018 13:27:46 Sinus rhythm no longer present Atrial premature complex(es) no longer present Aberrant conduction of supraventricular beat(s) no longer present Electronically Signed On 10-29-24 11:04:47 [employer]UNT WOMAN by Derek Willard
== END 2024-10-22 14:43 | disposition home or self-care (01) | DRG 377 ==
LOC: ER 10:19 → UNDOADMOB 12:55 → ERHOLD 12:55 → OBSVTOIN 13:16 → INTOOBSV 13:16 → 2ND 13:22 → ERHOLD 13:22 → 2ND 19:34 → OBSVTOIN 10-21 13:16 → ERHOLD 10-21 13:16 → 2ND 10-21 13:16
PROVIDERS: ADMIT Hospitalist; ATTEND Hospitalist
DX: K92.1 Melena (principal); I21.A1 Myocardial infarction type 2; K52.9 Noninfective gastroenteritis and colitis, unspecified; I10 Essential (primary) hypertension; E03.9 Hypothyroidism, unspecified; E78.5 Hyperlipidemia, unspecified; E11.9 Type 2 diabetes mellitus without complications; G47.33 Obstructive sleep apnea (adult) (pediatric); N40.0 Benign prostatic hyperplasia without lower urinary tract symptoms; K21.9 Gastro-esophageal reflux disease without esophagitis; I25.10 Atherosclerotic heart disease of native coronary artery without angina pectoris; F17.200 Nicotine dependence, unspecified, uncomplicated; Z95.5 Presence of coronary angioplasty implant and graft; Z79.890 Hormone replacement therapy; Z79.84 Long term (current) use of oral hypoglycemic drugs; Z79.899 Other long term (current) drug therapy; Z79.82 Long term (current) use of aspirin; Z99.89 Dependence on other enabling machines and devices; Z96.651 Presence of right artificial knee joint; Z59.82 Transportation insecurity; Z56.0 Unemployment, unspecified; Z59.71 Insufficient health insurance coverage
CPT/HCPCS: 36415; 70450; 71045; 74177; 80048; 82947; 83880; 84439; 84443; 84484; 85018; 85025; 87045; 87046; 93005; 93306; 96360; 96361; 99285; J0744; J2405; J7030